=== PATIENT | male | born 1990 | race Caucasian/White ===

== ENCOUNTER 2018-11-02 13:41 | Emergency (ER) | payer SELFPAY ==
[2018-11-02 13:52] VITALS: BP 160/97; PULSE 102; RESP 20; TEMP 36.8; O2SAT 98
--- NOTE | 2018-11-02 14:18 | DI.RAD_ITS ---
SYMPTOMS/DIAGNOSIS: LACERATION S/P CUT WITH GLASS, ? FOREIGN BODY RIGHT LITTLE FINGER: Three views. No acute fracture or dislocation is seen. No radiopaque foreign bodies are seen in the soft tissues. IMPRESSION: No acute abnormality.
--- NOTE | 2018-11-02 14:20 | ED.GENADUL_ITS ---
Discharge Plan Disposition Patient Disposition: HOME Condition: Stable Discharge Details Chief Complaint: Laceration Clinical Impression: Finger laceration Primary Care Provider: Cleveland Castellanos ED Provider: Yesenia Nunez Home Meds and New Rx's Prescriptions: No Action No Known Home Meds RF: 0 Discharge Instructions Instructions: Finger Laceration (ED) Additional Instructions: Keep the area clean dry and intact. Alternate Tylenol and Motrin as needed and directed for pain. If you notice any redness, swelling or pain around the area, apply topical antibiotic ointment. If you have significant worsening of redness or fever, return immediately to the emergency department. You will receive a call from care management regarding a follow-up appoint with primary care doctor in 1 week. Return to the emergency department in 7 days for suture removal. Discharge Data Discharge Date/Time-TO BE ENTERED AT DEPARTURE: 11/02/18 16:07 Discharge Physician: Yesenia Nunez Medical Decision Making 28-year-old male who presents with right fifth finger laceration sustained on broken glass while cleaning dishes at home prior to arrival. Unknown tetanus status. He has a 3.5 cm laceration on the medial aspect of the right fifth finger. No obvious foreign body or bony injury. Neurovascularly intact. X-ray obtained and was negative for fracture or foreign body. 4 sutures were placed in finger. Consent was obtained from patient first prior to suture placement for medical student to perform procedure. Wound was irrigated well and closely approximated. Tetanus given. Antibiotic ointment and dressing placed. Patient does not have a primary care doctor. He was placed on care management list to arrange for primary care doctor. Patient was instructed to return to the emergency department in 7 days for suture removal. He was instructed to apply topical antibiotic ointment with any mild signs of infection and to return here immediately with any significant worsening signs of infection. Medical Records Medical records reviewed: Yes I reviewed the patient's medical records. Imaging Data Radiologic Study: Radiologist's impression: RIGHT LITTLE FINGER: Three views. No acute fracture or dislocation is seen. No radiopaque foreign bodies are seen in the soft tissues. IMPRESSION: No acute abnormality. HPI General Mode of arrival: ambulatory . Date/Time Provider Initiated Documentation: 11/02/18 13:55 . Limitations to Documentation: no limitations . Information obtained by: patient . HPI Narrative: Patient is a 28-year-old male presents with right fifth finger laceration after cut on a glass while cleaning dishes in the sink prior to arrival. He denies any known foreign body. He denies any bony injury or pain. He states he is unsure of his tetanus status and states he does not have a primary care doctor. Related Data Home Medications Medication Instructions Recorded Confirmed Unknown [No Known Home Meds] 02/04/13 11/02/18 Allergies Allergy/AdvReac Type Severity Reaction Status Date / Time No Known Allergies Allergy Unverified 11/02/18 13:55 General Stated Complaint: Laceration RONALD: 3 Review of Systems Review of Systems All systems reviewed & are unremarkable except as noted in HPI and below PFSH Medical History No significant past medical history (Acute) Surgical History No significant past surgical history (Acute) Social History Smoking and Tabacco status: Current every day alcohol intake: current alcohol intake frequency: a few times a month substance use type: marijuana Exam Const General: cooperative, healthy appearing and no acute distress HENMT Head: normal to inspection Mouth: oral mucosae normal Eyes General: appearance normal, both eyes and all related structures Neck Neck: normal visual inspection Resp Effort & Inspection: normal respiratory effort and able to speak in complete sentences Cardio Rate: regular rate Skin General skin exam: no rashes or lesions noted Neuro General: alert, awake and oriented x3 Motor: muscle tone normal throughout Extrem Right upper extremity: hand Details: normal capillary refill, no swelling, laceration (3.5 cm hook-shaped laceration on medial aspect of distal right fifth finger) and other; no unusual warmth, no ecchymosis, no crepitus and no foreign bodies Psych Appearance: grossly normal Affect: normal affect Course Vital Signs Temperature 98.2 F 11/02/18 13:52 Pulse 102 H 11/02/18 13:52 Respiratory Rate 20 11/02/18 13:52 Blood Pressure 160/97 H 11/02/18 13:52 Pulse Oximetry 98 11/02/18 13:52 Temperature 98.2 F 11/02/18 13:52 Temperature Source Temporal Artery Scan 11/02/18 13:52 Pulse 102 H 11/02/18 13:52 Respiratory Rate 20 11/02/18 13:52 Respiratory Effort Non-Labored 11/02/18 13:52 Blood Pressure 160/97 H 11/02/18 13:52 Blood Pressure Position Sitting 11/02/18 13:52 Pulse Oximetry 98 11/02/18 13:52 Oxygen Delivery Method Room Air 11/02/18 13:52 Oxygen Flow Rate 0 11/02/18 13:52 Pain Level 2 11/02/18 13:52 Procedures Laceration Laceration 1: Site: hand (5th finger) Side (If applicable): right Size (cm): 3.5 Description: other (hooked shaped) Depth: simple, single layer Local Anesthetic: Lidocaine 1% Amount of anesthesia used (mL): 3 Pre-repair: wound explored, irrigated extensively and deep structures intact Skin layer closed with: nylon Size (cm): 5-0 Number of sutures: 4 Technique: simple, interrupted
--- NOTE | 2018-11-04 08:48 | PDOC.ERCMPRO ---
Care Management Progress Note 11/04-Dr. Nunez requested assistance with a PCP (patient does not have one) f/u soon for medical issues that need to be addressed. 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 This was faxed on 11/03. In the afternoon of 11/03, [facility] faxed back that patient needs to call for New Patient packet. This CM called [facility] and spoke with Indu to see if they had reached out to patient. Indu stated I had to speak to Preeti. This CM left a message on Preeti's voice mail for a return call.
--- NOTE | 2018-11-04 08:51 | CMPROGNOTE_ITS ---
Care Management Progress Note 11/04-Dr. Nunez requested assistance with a PCP (patient does not have one) f/u soon for medical issues that need to be addressed. 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 This was faxed on 11/03. In the afternoon of 11/03, [facility] faxed back that patient needs to call for New Patient packet. This CM called [facility] and spoke with Indu to see if they had reached out to patient. Indu stated I had to speak to Preeti. This CM left a message on Preeti's voice mail for a return call.
== END 2018-11-02 16:07 | disposition home or self-care (01) ==
PROVIDERS: Emergency Provider Physician Assistant; PCP General Practice
DX: S61.226A Laceration with foreign body of right little finger without damage to nail, initial encounter (principal); W25.XXXA Contact with sharp glass, initial encounter
CPT/HCPCS: 12002; 90471; 99283; 73140; 99282

== ENCOUNTER → 2023-12-29 09:24 | Outpatient (CLI) | payer MEDICAID, SELFPAY ==
--- NOTE | 2023-12-29 15:51 | DI.RAD_ITS ---
Exam(s) XR KNEE LT 4V AP,LAT,VERNA,PAT EXAM: XR KNEE LT 4V AP,LAT,VERNA,PAT CLINICAL HISTORY: INJURY LEFT KNEE S89.92XA R/O FX OR DISLOCATION. TECHNIQUE: 2D digital imaging was performed of the left knee. Five images were obtained. Merchant, AP, lateral and PA tunnel views were obtained. COMPARISON: No exams were available for comparison FINDINGS: BONES: No acute fracture is present. No bony destructive lesion is seen. JOINTS: The patella appears mildly laterally located on the frontal views but normal alignment on the Merchant and lateral views. There may be a very tiny joint effusion. No loose body. SOFT TISSUE: Normal. IMPRESSION: No definite fracture or dislocation. If there is concern for internal derangement, an MRI should be considered for further evaluation. DATA REPOSITORY: RADIATION DOSE DELIVERED:
== END ==
PROVIDERS: PCP General Practice; Visit Provider Physician Assistant
DX: M25.562 Pain in left knee (principal)
CPT/HCPCS: 73564

== ENCOUNTER → 2024-02-18 00:03 | Outpatient (CLI) | payer MEDICAID, SELFPAY ==
--- NOTE | 2024-02-18 09:30 | DI.MRI_ITS ---
Exam(s) MR LOWER JOINT LT WO EXAM: MR LOWER JOINT LT WO CLINICAL HISTORY: ? MEDIAL MENISCAL TEAR M23.92 INTERNAL DERANGEMENT LT KNEE. TECHNIQUE: Multiplanar multisequence MRI was performed. COMPARISON: CR XR KNEE LT 4V AP,LAT,VERNA,PAT from 12/29/2023 FINDINGS: BONES: No fractures identified. There is marrow edema seen in the medial femoral condyle. JOINTS: There is chondromalacia overlying the patellar facet. The articular cartilage in the femoral tibial joint is well maintained. There is a small to moderate size joint effusion. TENDONS: Extensor mechanism: Unremarkable. Medial retinaculum: Unremarkable. Lateral retinaculum: Unremarkable. Popliteus: Unremarkable. MUSCLES: Unremarkable. MENISCI: There is a tear of the posterior horn of the medial meniscus. The lateral meniscus is unrem arkable. SOFT TISSUES: Unremarkable. LIGAMENTS: Anterior Cruciate: Unremarkable. Posterior Cruciate: Unremarkable. Medial Collateral:There is a small amount of fluid seen around the medial collateral ligament which m ay represent a sprain. Lateral Collateral: Unremarkable. OTHER: IMPRESSION: 1. Complex tear of the posterior horn of the medial meniscus. 2. No evidence of a ligament tear. 3. Contusion in the medial femoral condyle. 4. Patellar chondromalacia. DATA REPOSITORY:
== END ==
PROVIDERS: PCP General Practice; Visit Provider Student in an Organized Health Care Education/Training Program
DX: M23.92 Unspecified internal derangement of left knee (principal); S83.232A Complex tear of medial meniscus, current injury, left knee, initial encounter; S80.02XA Contusion of left knee, initial encounter; M22.42 Chondromalacia patellae, left knee
CPT/HCPCS: 73721

== ENCOUNTER 2024-06-02 06:02 | Day surgery (SDC) | payer MEDICAID, SELFPAY ==
[2024-06-02] VITALS (47 sets, daily range): BP systolic 138–171; BP diastolic 67–108; PULSE 70–90; RESP 9–22; TEMP 36–37; O2SAT 91–100; BMI 44.8
--- NOTE | 2024-06-02 06:54 | W.PM.OP ---
Date of service: 06/02/24 Time of Service: 07:30 Operative Note Operative Note DATE OF PROCEDURE: 06/02/24 PRE-OP DIAGNOSIS: Left knee 1. Medial meniscus tear 2. Synovitis 3. Chondromalacia patella POST-OP DIAGNOSIS: same PROCEDURE: Left knee 1. Partial medial meniscectomy, CPT #59716 2. Greater than 2 compartment synovectomy, CPT #68446: Anterior, intercondylar, and suprapatellar 3. Chondroplasty, CPT #14303: Patellar SURGEON: Mayco Preciado SALES DEPARTMENT SUPERVISOR: None None ANESTHESIA TYPE: Local By Surgeon and General LMA/ETT Refer to Anesthesia Record ESTIMATED BLOOD LOSS: 10 PATHOLOGY: none sent TOURNIQUET TIME: 0 Patient was transported to: PACU Patient's condition: stable Indications: Please see complete medical record for details. Findings: Exam under anesthesia: Good range of motion, no instability Arthroscopic findings: Significant suprapatellar, medial lateral gutter, anterior, and intercondylar synovitis. Adhesions between the ligamentum mucosum, intrameniscal ligament, and ACL. Moderately significant diffuse patellar undersurface chondromalacia and more mild trochlear chondromalacia with loose edges cartilage flaps. Small cartilaginous loose body lateral gutter. Intact lateral meniscus with mild lateral chondromalacia. Mild medial chondromalacia with moderately large sized complex medial meniscus tear radial at the posterior horn body junction with a somewhat oblique to parrot-beak component, but no readily repairable horizontal or vertical tears encountered. Procedure Description: In the operating room, general anesthesia was induced. The patient was positioned supine on the operating room table. All bony prominences were well-padded. Preoperative antibiotics were administered. The knee was prepped and draped in the usual sterile fashion. The correct patient, procedure, and side of the procedure were all verified prior to incision. Exam under anesthesia was performed. 10 cc of 0.25% bupivacaine containing epinephrine was infiltrated about the planned anteromedial and anterolateral knee arthroscopy portals. An additional 10 cc was infiltrated about the medial joint line. The portals were established and a complete diagnostic arthroscopy was performed with relevant findings detailed above. The mechanical shaver was used to remove pathologic synovium from the anterior, intercondylar, and suprapatellar spaces. The anterior and internal compartments had to be somewhat meticulously debrided to remove adhesions between very structures anteriorly anterior laterally intrameniscal ligament ACL and allow reopening and exposure for the case. The radiofrequency ablator was used to establish hemostasis and appropriate soft tissue contours. The romain used to remove small cartilaginous loose body from the lateral gutter. The shaver and radiofrequency wand were used to debride synovitis in resect adhesions in the patellofemoral and suprapatellar spaces as well. The torpedo shaver was then used to trim and smooth nicely removing rough and irregular edges of the undersurface patellar chondromalacia and to a lesser extent on the trochlea. The medial meniscus was then carefully examined. Using a combination of hand instruments including meniscal biters and a power shaver and working through the anteromedial and anterolateral portals the meniscus was debrided of all torn tissue to a stable margin slowly and progressively while examining meniscus remnant for potential repair after each part was debrided.. Care was taken to preserve as much meniscus tissue was possible although the radial extent of the tear at the junction of the body and posterior horn was rather peripheral and required contouring into the body and posterior horn. The meniscal remnant was probed and found to have a stable margin, stable root, and no other tears. The MRI showed a possible vertical component that was hidden from the joint and medial gutter view. An 18-gauge needle was used from the outside in to trephinate the peripheral meniscal capsular margin to aid in healing of this potential tear as well as any meniscal abnormality degeneration about the tear that was just debrided. The knee was copiously irrigated with arthroscopic fluid until there was a clear effluent before being drained of all fluid. The anteromedial and anterolateral portals were closed in 3-0 Monocryl in a buried interrupted fashion. An additional 10 cc of 0.25% bupivacaine with epinephrine was infiltrated about the medial joint line site of meniscus work. Mastisol, Steri-Strips, and 4 x 4 gauze were applied over the incisions. The knee was then wrapped gently with an LYRIC comressive bandage. The patient awoke from anesthesia without complication and was transferred to the recovery room in a stable condition.
[2024-06-02] MEDS: Lactated Ringers 1,000 ML 30 ML IV (06:55)
--- NOTE | 2024-06-02 07:06 | W.ANESPRE ---
General Info Date of Service Date Performed: 06/02/24 Height: 6 ft Weight: 150 kg Body Mass Index (BMI): 44.8 Surgical Procedure: Operation Date: 06/02/24 07:40 Proposed Procedure Side Surgeon p Knee Arthroscopy, Possible Medial Meniscus Repair & Microfracture as Bone Marrow Stimulation Left Mayco Preciado MD Meds Allergies and Home Medications Allergies Allergy/AdvReac Type Severity Reaction Status Date / Time No Known Allergies Allergy Verified 06/02/24 06:21 Home Medication ?Medication ?Instructions ?Recorded Unknown [No Known Home Meds] 02/04/13 Current Visit Medications: Current Medications Generic Name Dose Route Start Last Admin Trade Name Freq PRN Reason Stop Dose Admin Ringer's Solution 1,000 mls @ 30 mls/hr 06/02/24 06:00 06/02/24 06:55 IV 06/02/24 23:59 30 mls/hr INFUSION TRU Administration Cefazolin Sodium 3,000 mg/ 100 mls @ 200 mls/hr 06/02/24 06:00 Sodium Chloride IV 06/02/24 23:59 PREOP TRU Tranexamic Acid/Sodium Chloride 1,000 mg in 100 mls @ 600 mls/hr 06/02/24 06:00 IVPB 06/02/24 23:59 PREOP TRU IV Miscellaneous Supplies 1 each 06/02/24 06:00 Iv Access IV 06/02/24 23:59 DIRECTED TRU Sodium Chloride 0 ml 06/02/24 06:00 Normal Saline Flush 10 Ml Syr IV 06/02/24 23:59 PRN PRN Sodium Chloride 0 ml 06/02/24 06:00 Normal Saline 10 Ml Vial IJ 06/02/24 23:59 DIRECTED PRN Sterile Water 0 ml 06/02/24 06:00 Water,Injection,Sterile 10 Ml Vial IJ 06/02/24 23:59 DIRECTED PRN PFSH Active Problems Active Problems: Problem Status Onset Code No-show for appointment Acute Z91.199 Acute medial meniscus tear of left knee Acute ~11/2023 S83.242A Medical History Medical History No significant past medical history Medical History Comments:: edibles 4x week Surgical History Surgical History No significant past surgical history Tobacco Smoking/Tobacco Use Status: Current every day Tobacco Type: e-cigarettes Alcohol Alcohol Intake: current Alcohol intake frequency: holidays/special occasions only Substance Use Substance use: Daily Substance use type: marijuana Details: 4x week edible Vital Signs and Lab Results Vital Signs Most Recent Vital Signs in EMR: Most Recent Vital Signs Temp Pulse Resp BP Pulse Ox 36.5 C 90 17 138/67 97 06/02/24 06:22 06/02/24 06:22 06/02/24 06:22 06/02/24 06:22 06/02/24 06:22 Lab Results Blood Type / Crossmatch: No Data to Display Complete Blood Count: No Data to Display Complete Metabolic Panel: No Data to Display Liver Function Panel: No Data to Display Coagulation Panel: No Data to Display Cardiac Panel: No Data to Display Arterial Blood Gas: No Data to Display Venous Blood Gas: No Data to Display Pancreas Panel: No Data to Display Thyroid Panel: No Data to Display Infectious Disease: No Data to Display Blood Cultures: No Data to Display Toxicology Panel: No Data to Display Anesthesia Assessment and Plan Anesthesia History Personal History: No History of General Anesthesia Family History: No Family History of Anesthesia Complications Exercise Tolerance Exercise Tolerance: Metabolic Equivalents>4 Pertinent Negatives Pertinent Negatives: No Symptoms of GERD, No Major Cardiovascular Symptoms or Complaints, No Major Pulmonary Symptoms or Complaints and No History of CVA/TIA Cardiac & Pulmonary Exam Cardiac Exam: Normal S1/S2 Heart Sounds Pulmonary Exam: Clear Bilateral Breath Sounds Implantable Cardiac Device Does patient have a Pacemaker or an ICD?: No Airway Exam Known Difficult Airway: No Mallampati Class: 3 Mouth Opening: Normal (> 3cm) Thyromental Distance: Greater than 3 cm Neck Range of Motion: Full ROM Neck Circumference: Normal Teeth Condition: Normal Dentition ASA Classification ASA Score: ASA 3 Emergency Case?: No NPO Status NPO Status: NPO Clears >2 hours, Solids >8 hours Anesthesia Plan Resuscitation Status: Full Code Anesthesia Technique: General Anesthesia Airway Planned: LMA Monitors Used: Standard Monitors
--- NOTE | 2024-06-02 07:06 | W.PM.DSUDISC ---
Date of service: 06/02/24 Time of Service: 09:00 Discharge Plan Disposition Patient Disposition: Home Condition: Stable Discharge Details Attending Provider: Mayco Preciado Primary Care Provider: Cleveland Castellanos Home Meds and New Rx's Prescriptions: New naproxen 250 mg tablet 250 - 500 mg PO BID PRNQty: 40 0RF Rx Instructions: take with a meal aspirin 325 mg tablet,delayed release (DR/EC) 325 mg PO DAILY 14 Days Qty: 14 0RF oxycodone 5 mg tablet 5 - 10 mg PO Q4H MDD 30 mg PRN (Reason: moderate to severe pain) Qty: 18 0RF Discharge Instructions Additional Instructions: Surgery: Left knee arthroscopy with partial medial meniscectomy, patellar chondroplasty, and synovectomy Activity: Weightbearing as tolerated. Advance range of motion as comfort allows. No knee brace or crutches needed as soon as comfortable. Recommend avoiding sports, pivoting, and squatting for 6-8 weeks. A physical therapy prescription will be sent electronically to start in 2 to 3 weeks. Prescriptions: Aspirin 325 mg take 1 daily to prevent a blood clot for 14 days, starting tomorrow Naproxen 250 mg take 1-2 every 12 hours with a meal as needed for moderate pain Oxycodone 5 mg take 1-2 every 4-6 hours as needed for severe pain You may use [id number] Tylenol (acetaminophen) as needed for mild pain. These pain medications may be taken all at once or in different combinations as needed. Also, recommend Colace (docusate) as a stool softener as surgery and pain medicine cause constipation. You may try [id number] diphenhydramine (Benadryl) 25-50 mg nightly as a sleep aid Dressings: Leave dressing in place for 3 days. May then remove and leave open to air or cover incisions with Band-Aids. Leave the sticky Steri-Strips in place until they fall off or remove them after you shower. May shower after 5 days. Follow-up: 10-[address] Preciado You may take off the leg compression stockings this evening at home. You may also leave them on a few days longer if you have a history of leg swelling or edema. Let us know right away if you develop any redness, drainage, fevers, chest pain, or trouble breathing. Do not drink alcohol or drive for at least 24 hours after anesthesia. Please call the office during business hours with any questions or concerns. Discharge Orders Discharge Orders: Discharge Order (Routine); Ordered 06/02/24 Ordered By: Adry Baird DS: Diagnosis Discharge Diagnosis (1) Acute medial meniscus tear of left knee: Status: Acute (2) Chondromalacia of patella, left: Status: Acute
[2024-06-02] MEDS: ceFAZolin 3,000 MG in Normal Saline 100 ML 200 MG IV (07:33)
[2024-06-02] MEDS: TRANEXAMIC ACID/SOD. CHL. 1,000 MG/100 ML BAG 600 MG IVPB (07:44)
[2024-06-02] MEDS: Bupivacaine 0.25% Pres-Free W/EPI 30 ML VIAL (08:14)
[2024-06-02] MEDS: EPINEPHrine 10 MG/10 ML ML (08:43)
[2024-06-02] MEDS: HYDROmorphone 2 MG/ML SYR IVP ×2 (09:55→10:05)
[2024-06-02] MEDS: Normal Saline 10 ML VIAL IJ (09:55)
[2024-06-02] MEDS: fentaNYL 100 MCG/2 ML VIAL IVP ×2 (10:15→10:20)
--- NOTE | 2024-06-02 10:43 | W.ANESPOSTOP ---
Postoperative Evaluation Date, Time and Location Date Performed: 06/02/24 Time Performed: 10:43 Patient Location: Day Surgery Unit Vital Signs Most Recent Imported Vital Signs: Most Recent Vital Signs Temp Pulse Resp BP Pulse Ox 36.0 C L 80 11 L 148/93 H 100 06/02/24 10:33 06/02/24 10:33 06/02/24 10:33 06/02/24 10:33 06/02/24 10:33 Pain Score Most Recent Pain Score: Most Recent Pain Score Pain Level 3 06/02/24 10:33 Assessment Mental Status: Awake (Alert & Oriented to Patient Baseline) Airway and Respiratory Function: Patent airway with normal (patient baseline) respiratory exam Cardiovascular Function: Hemodynamically Stable Hydration Status: Adequately Hydrated Nausea & Vomiting: No Nausea or Vomiting Pain: Pain is Moderate or Severe Postoperative Pain Management: Pain being addressed with medication Peripheral Nerve Block: Patient did not receive a nerve block
== END 2024-06-02 11:30 | disposition home or self-care (01) ==
PROVIDERS: PCP General Practice; Visit Provider Student in an Organized Health Care Education/Training Program
PROC: (CPT 29870; principal; 2024-06-02 07:30)
DX: S83.242A Other tear of medial meniscus, current injury, left knee, initial encounter (principal); M22.42 Chondromalacia patellae, left knee; X58.XXXA Exposure to other specified factors, initial encounter; M65.162 Other infective (teno)synovitis, left knee
CPT/HCPCS: 29876; 29881; J0131; J0690; J1100; J1170; J1805; J1885; J2250; J2270; J2405; J2704; J3010

== ENCOUNTER 2024-10-05 12:43 | Outpatient (CLI) | payer MEDICAID, SELFPAY ==
--- OUTSIDE RECORDS SUMMARY | 2024-10-05 12:44 | XMS_ITS | Encounter Summary ---
Author Organization [facility] Address [address] [place] [address] Care Team Providers Care District Administrative Assistant Name Role Phone None, Provider Primary Care Provider Unavailabl e Encounter Details Date Type Department Care Team (Late st Contact Info) Description 09/14/2011 Results Only [facility] ([facility]) [address], [place] [id number] Landen Moscoso MD [address] [facility] [address] [place] [address] Social History Tobacco Use Types Packs/Day Years Used Date Smoking Tobacco: Every Day Cigarettes 0.3 4 Smokeless Tobacco: Current Alcohol Use Standard Drinks/Week Comments No 0 (1 standard drink = 0.6 oz pur e alcohol) Sex and Gender Information Value Date Recorded Sex Assigned at Not on file Legal Sex Male 18:53 EST Gender Identity Not on file Sexual Orientation Not on file documented as of this encounter Mental Status * Because of a physical, mental, or emotional condition, do you have serious difficulty concentrating, remembering, or making decisions? (5 years old or older) Answer Entry Date Author Yes 03/20/2011 23:33 Klever Harding documented in this encounter Plan of Treatment Not on file documented as of this encounter Procedures Procedure Name Priority Date/Time Associated Diagnosis Comments ABO/RH Routine 09/14/2011 17:58 EST VARICELLA IGG ANTIBODY Routine 09/14/2011 17:28 EST documented in this encounter Results * ABO/RH (09/14/2011 17:58 EST) ABO A [facility] Rh Factor Positive [facility] 09/14/2011 17:5 8 EST 09/14/2011 17:58 EST us Landen Moscoso MD BLOOD BANK TESTS Final Resul t Performing Organization Address [facility] Co de Phone Number [facility] [address] [place] [address] * VARICELLA IGG ANTIBODY (09/14/2011 17:28 EST) Varicella IgG Ab Positive [facility] 09/14/2011 17:2 8 EST 09/14/2011 17:28 EST us Landen Moscoso MD IMMUNOLOGY AND SEROLOGY ORDCasimiro JOHNSON Final Result Performing Organization Address [facility] Co de Phone Number [facility] [address] [place] [address] documented in this encounter Visit Diagnoses Not on filedocumented in this encounter Care Teams District Administrative Assistant Relationship Specialty Start Date End Date None, Provider PCP - General 03/20/11 documented as of this encounter
--- OUTSIDE RECORDS SUMMARY | 2024-10-05 12:44 | XMS_ITS | Clinical Summary ---
Author Organization [facility] Address [address] [place] [address] Care Team Providers Care Works Manager Name Role Phone None, Provider Primary Care Provider Unavailabl e Allergies No known active allergies Medications No known medications Active Problems Problem Noted Date Diagnosed Date Depression 03/20/2011 Suicidal ideation 03/20/2011 Family History Medical History Relation Comments Diabetes Maternal Grandmother Diabetes Maternal Uncle Diabetes Mother Relation Status Comments Maternal Grandmother Maternal Uncle Mother Social History Tobacco Use Types Packs/Day Years Used Date Smoking Tobacco: Every Day Cigarettes 0.3 4 Smokeless Tobacco: Current Alcohol Use Standard Drinks/Week Comments No 0 (1 standard drink = 0.6 oz pur e alcohol) Sex and Gender Information Value Date Recorded Sex Assigned at Not on file Legal Sex Male 18:53 EST Gender Identity Not on file Sexual Orientation Not on file Obstetrics History Last Filed Vital Signs Vital Sign Reading Time Taken Comments Blood Pressure 129/71 03/25/2011 0752 EDT Pulse 75 03/25/2011 0752 EDT Temperature 36.5 ??C (97.7 ??F) 03/25/2011 0752 EDT Respiratory Rate 16 03/25/2011 0752 EDT Oxygen Saturation 98% 03/25/2011 0752 EDT Inhaled Oxygen Concentration - - Weight 74.5 kg (164 lb 3.2 oz) 03/22/2011 1100 E DT Height 174 cm (5' 8.5) 03/22/2011 1100 EDT Body Mass Index 24.6 03/22/2011 1100 EDT Plan of Treatment Health Maintenance Due Date Last Done Comments Hepatitis C Screen 1991 Hepatitis B Vaccine (1 of 3 - 19+ 3-dose series) 01/10 COVID-19 Vaccine (2023- season) 2024 Advance Directives For more information, please contact: [phone] * Full Code (Latest Code Status on File) Date Activated Date Inactivated Comments 03/20/2011 22:32 03/25/2011 16:52 Care Teams Works Manager Relationship Specialty Start Date End Date None, Provider PCP - General 03/20/11
--- OUTSIDE RECORDS SUMMARY | 2024-10-05 12:44 | XMS_ITS | Encounter Summary ---
Author Organization [facility] Address [address] [place] [address] Care Team Providers Care Barrel Tester And Drainer Name Role Phone None, Provider Primary Care Provider Unavailabl e Reason for Visit * Reason Comments Suicidal Patient currently on active duty in [employer]. Expressed to friend today he has a plan to kill himself with a knife. No thoughts of HI. No drugs or ETOH today. Patient calm and cooperative in triage. Arrives to ED with friend whom plans on staying with him while in ED. Encounter Details Date Type Department Care Team (Late st Contact Info) Description 03/20/2011 19:40 EDT - 03/25/2011 14:48 EDT Hospital Encounter [facility] Inpatient Psychiatry Unit [address], [place] [id number] Rachel Monsivais PA-C [address] [phone] Carly Adame PA-C [address] [phone] Sandra Boothe MD [address] [place] [address] [address] [place] [phone] Nicholas Moreno MD Suicidal ideation Discharge Disposition: Auto Discharge Social History Tobacco Use Types Packs/Day Years Used Date Smoking Tobacco: Every Day Cigarettes 0.3 4 Smokeless Tobacco: Current Tobacco Cessation:Ready to Q uit: No Alcohol Use Standard Drinks/Week Comments No 0 (1 standard drink = 0.6 oz pur e alcohol) Sex and Gender Information Value Date Recorded Sex Assigned at Not on file Legal Sex Male 18:53 EST Gender Identity Not on file Sexual Orientation Not on file documented as of this encounter Last Filed Vital Signs Vital Sign Reading Time Taken Comments Blood Pressure 129/71 03/25/2011 0752 EDT Pulse 75 03/25/2011 075 EDT Temperature 36.5 ??C (97.7 ??F) 03/25/2011 0752 EDT Respiratory Rate 16 03/25/2011 0752 EDT Oxygen Saturation 98% 03/25/2011 075 EDT Inhaled Oxygen Concentration - - Weight 74.5 kg (164 lb 3.2 oz) 03/22/2011 1100 E DT Height 174 cm (5' 8.5) 03/22/2011 1100 EDT Body Mass Index 24.6 03/22/2011 1100 EDT documented in this encounter Mental Status * Because of a physical, mental, or emotional condition, do you have serious difficulty concentrating, remembering, or making decisions? (5 years old or older) Answer Entry Date Author Yes 03/20/2011 23:33 EDT Klever Wheeler documented in this encounter Discharge Summaries * Nicholas Moreno MD - 03/26/2011 1420 EDT INPATIENT PSYCHIATRIC DISCHARGE SUMMARY Patient Name: Brice Spivey : 1990 Date of Admission: 03/20/2011 Date of Discharge: 03/25/2011 Attending at time of discharge: Nicholas Moreno MD DISCHARGE DIAGNOSIS: [place] I: Major depressive episode, single, moderate [place] II: defer [place] III: Non contributing medical problems [place] IV: Legal issues, employment, financial [place] V: GAF on admission: 21 , on discharge: 66 Reason for Admission: Positive depression screening History of Present Illness: (attributable to admitting resident Dr. Diego.) The patient is a 21 y.o. single man in [employer] who presented to the ED in the company of his sergeantafter answering positively to screening questions about depression and suicidality during an annualphysical exam. 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 In the time since he describes feeling increasingly depressed and like he has failed himself and his family. He has been unable to pay bills, fines, or rent and believes he will soon lose his apartment as a result. Pt has continued to function in the [employer] but reports having less pep and loss of interest and pleasure in his work, and his sergeant reports that he has seemed quiet and withdrawn. Pt reports that he has had increasingly frequent thoughts about killing himself, including sitting for hours with a knife as he contemplates cutting his wrists. He has access to firearms in the [employer] and at home. Pt says there's nothing I can do, life's dragging me down and that there's reallyno point to keeping going. He reports drinking most weekends prior to his DWI with no endorsed alcohol consumption since, and denies other substance use apart from smoking 3-4 cigarettes daily. The patient has never been treated by a psychiatrist or taken psychotropic medication but reports that he had counseling from ages 7 to 13 following adoption by his biological aunt and uncle. He declines to talk about the time before the adoption, saying I've dealt with it. He endorses depressivesymptoms noted below, without endorsed auditory or visual hallucinations, nightmares, flashbacks, intrusive memories, or past periods of abnormally elevated mood, energy, or activity. He is seeking treatment and agrees readily to voluntary psychiatric admission. Meds on Admission: .No current facility-administered medications on file prior to encounter. No current outpatient prescriptions on file prior to encounter. Hospital Course: The patient was admitted to [facility], on a voluntary basis. Admission physical exam showed healthy young male, tattoo on L forearm. Admission labs showed presumptivepositive cannabis on urine screen. History was obtained from patient, sergeant. Young man clearly stressed as a result of recent events. He was tearful but appreciative on initial interview. He was pleased when members of his unit visited. Participated in discussion of risk and benefits of antidepressant treatment and agreed to trial of Sertraline 50 mg daily. He also actively became involved in milieu and group and benefited from this. He was thoughtful, helpful and [facility] He tolerated the medication without significant side effects. A meeting was held with MAYA Cope, [facility], [place] Director of Psychological Health, [facility], who participated in discharge planning. We discussed his returning to his [employer] unit at [employer] vs. returning home to his apt. Though there were pros and cons to each choice, Lawrence preferred to return to finish his training with his supportive unit. She informed that he would be under a 90 day review. He would not e handling weapons during this period. He denied SI through the majority of his admission. Given assistance enrolling in [facility] and getting referral to PCP in [facility]. Condition on Discharge: Improved Mental Status Exam on Discharge: Casually dressed, wearing an [employer] Tshirt, bright face, but somewhat tense expression. Showed examiner a couple card tricks. Polite formally. Good eye contact. Speech fluent. Mood improved, affect mildly anxiously thought logical. Without delusions or hallucinations.Denies SI. Insight and judgment fair to good. Discharge Medications: Brice Spivey Home Medication Instructions LILIANA:[id number] Printed on:03/26/11 1423 Medication Information sertraline (ZOLOFT) 50 mg tablet Take 1 Tab by mouth daily for 14 days. Disposition: Return to [employer] unit at [employer] at [facility] Discharge Plans/Follow-up Appointments: Please follow-up with Elizabeth Mathew MA, [facility], [place] Director of Psychological Health, [facility] [place] [facility], at [phone] or [phone]. As per our meeting 03/24/11, EileenTyson is arranging mental health follow up in your community and will assist you with finding a primary care physician. Mental Health Crisis Services: [facility]: [phone] Total time spent on day of discharge: 35 min. Nicholas Moreno MD, MD Attending Psychiatrist documented in this encounter Discharge Instructions * Discharge Instructions* Jeanine Tineo, [facility] - 03/25/2011 13:52 EDT Additional Medication Instructions: Do not use alcohol Do no use illicit drugs Do not take any medications that were not prescribed Consult with a physician before starting any new herbal supplements or [id number] medications, as some of these may interact with your prescribed medication. Discharge Plans/Follow-up Appointments: Please follow-up with Elizabeth Mathew MA, [facility], [place] Director of Psychological Health, [facility] [place] [facility], at [phone] or [phone]. As per our meeting 03/24/11, Ms. Mathew is arranging mental health follow up in your community and will assist you with finding a primary care physician. Mental Health Crisis Services: [facility]: [phone] documented in this encounter Medications at Time of Discharge sertraline (ZOLOFT) 50 mg tablet Take 1 Tab by mouth daily for 14 days. 14 Tab 0 03/25/2011 04/08/2011 documented as of this encounter Ordered Prescriptions Prescription Sig Dispense Quantity Refills Last Filled Start Date End Date sertraline (ZOLOFT) 50 mg tablet Take 1 Tab by mouth daily for 14 days. 14 Tab 0 03/25/2011 04/08/2011 documented in this encounter Discharge Disposition Disposition Code Departure Means Destination Auto Discharge documented in this encounter Progress Notes * Jeanine Tineo CSW - 03/25/2011 1610 EDT Social Work Progress Note Intervention/Service: Discharge Note Discharged with plan to return to training with the [facility] [employer] at [employer]. Meeting with Denise Childs, director of psychological services, took place on 03/24/11 where discharge plans were reviewed with WENDY and Dr. Moreno. 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 Please see discharge instructions for more detailed information re: follow-up plans. Dept assisted with one week's supply of prescribed medication. * Zofia Gaona - 03/25/2011 1219 EDT Focus Group S/O: Pt spoke about his discharge later today and stated that groups are helpful especially the garden group where you get outside. Pt also completed the patient satisfaction survey. When a new patient came into the group late he socialized and they spoke about their experiences for a few minutes. Pt in a good mood. A: engaged, improved mood, smiling, laughing and socializing, full affect. P: to continue to participate in groups. * Wilfrid Johnson - 03/24/2011 1730 EDT K[employer]ing S/O The patient initially declined the [employer] invite, but reconsidered when asked a second time. He chose a few songs from the selection, but didn't sing, instead choosing to surf the web on his phone. He talked with a peer and the AT about music in his past, but otherwise, kept to his cell phone. A: Pt was attentive with full affect. Did not fully participate. P: Continue participation in groups . * Nicholas Moreno MD - 03/24/2011 1704 EDT 03/24/2011 ATTENDING NOTE PROBLEM (ID and CC): Depressed and SI on screening HOSPITAL DAY: LOS: 4 days HISTORY: Doing very well with supports. Seen today with Elizabeth Mathew of [facility], Stephie Croft Cheerful, social, brighter. Slept 8 h. No SEs. Elizabeth outlined 90 day review for the [employer]. He would like to return to his unit and we discussed the alternative of going home, unemployed with nothing meaningful to do. He is quite happy with his progress and adds, I feel I can conquer the world. EXAM: Casually dressed, pleasant, polite, somewhat naive, good eye contact, fidgety, speech fluent,appropriate. Mood good, affect bright. Thought logical. Without delusions or hallucinations. DeniesSI. Insight and judgment good. BP 146/78 Pulse 64 Temp(Src) 35.9 ??C (96.6 ??F) (Tympanic) Resp 14 Ht 174 cm (68.5) Wt 74.481 kg (164 lb 3.2 oz) BMI 24.60 kg/m2 SpO2 94% ASSESSMENT: MDE, moderate. Doing well with support. He has had a number of stressors recently and feels he has not had anyone to talk to about these. Part of his improved affect involves his feeling unburdened. He is tolerating the Sertraline and feels the med is helping already. I do not believe his fairly prompt improvement is due to antidepressant-induced hypomania. He continues to be rationale and appreciative and to present a logical argument for returning to his unit. He is sleeping well.Discussed discharge tomorrow and [facility] psychological customs consultant was very helpful in planning. PLAN: 1. Continue Zoloft 50 mg daily 2. Help him enroll in [facility]. 3. Elizabeth can help find counselor 4. Referral to PCP near [facility] 5. D/C to unit at [employer] - Elizabeth will f/u with him there. I have personally seen and examined the patient today. Treatment plan reviewed with the team. I spent a total of 40 minutes with this patient in direct floor time and 25 minutes of that time was spent in counseling and coordination of care regarding status of symptoms, education/ reassurance about recovery, discharge planning. NICHOLAS MORENO MD Pager [phone] Attending, Inpatient Psychiatry, [facility] . * Jeanine Tineo, [facility] - 03/24/2011 7164 EDT Psychosocial Assessment Presenting Problems: 21 year old, single, man who is currently in the [employer] and has been involved in training exercises at [employer]. He lost his license after a DUI two months ago, and three weeks ago was laid off from his job. He has been more depressed since then, and has felt as if he failed himself, and his family. He has experienced significant financial difficulties and worries about losing his housing. He has become more withdrawn, and has not been able to accept offers of emotional support. Began to have thoughts of killing himself, spent hours sitting with a knife thinking about cutting his wrists. He reports prior to admission thinking there was nothing leftto keep him going on with his life. Current Living Situation/Housing: Apartment in [place], [place] Family/Support System and Contact Telephone Numbers: Rhiannon Sorto - friend - no phone number Family Constellation/Pertinent Family History: Was adopted by biological aunt and uncle at age 7. Lawrence knows his biological mother but does not know his father. Describes his adoptive family as supportive. Was raised with seven siblings - some biological cousins and others also adopted. Does not discuss childhood before age 7. Other Social Supports: Guard members, cousin, and other family and friends. Education/Employment Financial: [employer]. Recently lost job. Has significant financial concerns. Substance Abuse and Treatment History: Alcohol abuse but none since DUI two months ago. Mental Health Treatment History: Counseling from age [age] to [age] following adoption at age 7 by aunt and uncle. No therapy since and no psychiatric hospitalizations. Mental Health and Other Providers: Elizabeth Mathew MA, [facility] ([facility]) or [phone] Legal Issues: DUI two months ago - license revoked Spiritual/Mandaeism/Cultural Considerations: Is a spiritual person, no formal affiliation. Other Issues/Supports/Barriers to Adaptive Functioning: Further assessment needed Insurance/Pharmacy Coverage: No insurance Assessment: 21 year old single man who has lost job, had license revoked due to DUI, and who now faces significant financial difficulties. He reports he became depressed and hopeless and stopped talking to people becoming more quiet and withdrawn. He contemplated suicide in context of letting his family and himself down with DUI and job loss. He is currently connected with the [place] [employer] and was in process of training exercises at [employer] [facility]. He wants help and seems to be engaging on the unit. Continued assessment needed. Plan: Contact Elizabeth Mathew Continued assessment Offer meeting with team and Ms. Mathew (completed on 03/24/11) * Zofia Gaona - 03/24/2011 1439 EDT S/O: Pt participated in playing cards and socializing. A: Increase in activity, increase in socialization, increase in relaxation. P: To continue to participate in groups. * Zofia Gaona - 03/23/2011 1545 EDT Pet Therapy: S/O: Pt attended the group and was attentive to the dog and social with the Pet therapist and others in the group. Pt gave the dog a good rub down, got water for the dog, and fed the dog a treat. Pt smiling and social as he interacted with the dog. A: Engaged, increase in activity, expressed feelings, inc participation, brighter affect. P: to continue to participate in groups. * Chang Caballero (At) - 03/23/2011 1025 EDT Exercise Group: S/O: Pt participated in learning and employing kick-boxing movements. Pt shared some information about the fighting techniques he had learned in the [employer] and stated that he thought the should start using kick-boxing. When pt learned that there would be a ballet segment of the class, pt quickly replied that he would not be taking part in it, saying that he is masculine and does not do that type of thing. Pt politely left the group after 30 minutes. A: Brightened affect, engaged, strongly identifies with his masculinity P: To continue to participate in groups. * Rikki Alonso MD - 03/23/2011 0825 EDT 03/23/2011 ATTENDING THRESHER BROOMCORN NOTE REASON FOR HOSPITALIZATION: SI HOSPITAL DAY: LOS: 3 days INTERIM HISTORY: Events of past 24h reviewed with nursing staff. Had break odfff unit with sergeants. Social Slept all night. Cooperaitve with all care. Social;. Out on milieu. Slept all night. Got call about possible new job--very pleased. EXAM: A + O X 3. Cooperative. Good eye contact. Speech RRR w/normal content/prosody. Affect full-range and reactive. No evidence of a psychotic process/dementia/delirium/delusions. Denies SI/HI/psychotic symptoms/delusions. Insight/judgment WNL. No motor slowing/agitation. Thougths are goal-directed, normal rate, normal content. BP 134/77 Pulse 96 Temp(Src) 36.4 ??C (97.5 ??F) (Tympanic) Resp 14 Ht 174 cm (68.5) Wt 74.481 kg (164 lb 3.2 oz) BMI 24.60 kg/m2 SpO2 97% ASSESSMENT: Improved. PLAN: As per treatment team. Continue current care. RIKKI ALONSO MD Attending Psychiatrist concrete mixer operator Pager [phone] * Chang Caballero (At) - 03/22/2011 1431 EDT Garden Group: S/O: Pt played cards with peers, smiling and laughing. Pt did pushups for a few minutes by himself as well. A: Bright affect, social, energetic P: To continue to participate in groups. * Chang Caballero (At) - 03/22/2011 1107 EDT Pet Therapy: S/O: Pt petted Naveen and chatted with staff and peers. Pt smiled often. After 15 minutes, pt becamemore attentive to a movie that a peer was watching but thanked the volunteer for bringing Naveen at the end of group. A: Brightened affect, social, engaged P: To continue to participate in groups. * Rikki Alonso MD - 03/22/2011 0844 EDT 03/22/2011 ATTENDING THRESHER BROOMCORN NOTE REASON FOR HOSPITALIZATION: SI HOSPITAL DAY: LOS: 2 days INTERIM HISTORY: Events of past 24h reviewed with nursing staff. HAd break odfff unit with sergeants. Social Slept all night. cooperaitve with all care EXAM: A + O X 3. Cooperative. Good eye contact. Speech RRR w/normal content/prosody. Affect full-range and reqctive. No evidence of a psychotic process/dementia/delirium/delusions. Denies SI/HI/psychotic symptoms/delusions. Insight/judgment WNL. No motor slowing/agitation. Thougths goal-directed, normal rate, normal content. BP 116/74 Pulse 96 Temp(Src) 36.7 ??C (98.1 ??F) (Tympanic) Resp 14 Wt 73.483 kg (162 lb) SpO2 98% ASSESSMENT: Settling in okay. PLAN: As per treatment team. Continue current care. RIKKI ALONSO MD Attending Psychiatrist concrete mixer operator Pager [phone] * Conhcis Fenton - 03/21/2011 1928 EDT Social Work Progress Note Intervention/Service: Coordination of care P/C from Denise Gonzalez at [employer] ([phone]) to inquire re pt care. She stated she wouldcome in to see pt on Thursday. She is available to assist with referral to aftercare services if needed. Informed pt of this and he said he felt relieved with the support he has been getting. * Conchis Fenton - 03/21/2011 9467 EDT Psychosocial Assessment Presenting Problems: 21 y/o single man admitted for depression with SI. He has sat for hours with aknife contemplating cutting his wrists. Precipitants include losing license for DUI, being laid offfrom his job, and financial problems. Current Living Situation/Housing: Shares an apartment with a cousin in [facility] [place] [facility]. Family/Support System and Contact Telephone Numbers: None given. Family Constellation/Pertinent Family History: Adopted at age 7 by bio aunt and uncle and raised with 7 sibs (some bio cousins and others adopted). Adoptive family is described as supportive. Refusesto give specific info re childhood. Was in counseling from age [age]. Other Social Supports: Friend, Rhiannon Luis. Education/Employment Financial: HS grad. Recently laid off from a job [employer]ling [employer], which pt reports he was good at and enjoyed the work. Also serves with the [employer]. Substance Abuse and Treatment History: Smokes 3-4 cigarettes daily. Stopped drinking alcohol about 2 mos ago after receiving DUI. Mental Health Treatment History: Counseling from ages [age]. Mental Health and Other Providers: None. Legal Issues: DUI about 2 mos ago. Spiritual/Mandaeism/Cultural Considerations: Spiritual. Not a member of any organized amish. Other Issues/Supports/Barriers to Adaptive Functioning: Financial problems and debt. Insurance/Pharmacy Coverage: None. Assessment: 21 y/o single man admitted for depression. He has become overwhelmed with recent stressors, including financial problems r/t lay off from work. The [employer] is very supportive of him and want to ensure that aftercare services are in place. Plan: Coordinate services with [employer]. Refer to OP services. Electronically signed by Conchis Fenton 03/21/2011 15:53 EDT * Federico (At)Chang - 03/21/2011 1214 EDT Department of Psychiatry-Inpatient Psychiatry Activities Therapy Assessment Diagnosis: Multiaxial Diagnostic Impression (including Differential Diagnosis) [place] I: MDD (single episode, severe without psychotic features), r/o bipolar [place] II: Deferred [place] III: None known [place] IV: Legal problems (DWI), unemployment, financial problems [place] V: 11-20 some danger of hurting self or others possible OR occasionally fails to maintain minimal personal hygiene OR gross impairment in communication TARGET SYMPTOMS: I. Mood Changes: Depressed II. Sleep changes: Patient denies any changes III. Appetite changes: Patient denies changes IV. Depression symptoms: Decreased pleasure, Decreased interest, Fatigue, Hopelessness, Helplessness, Worthlessness/guilt, Social isolation and Psychomotor activity (slowed) V..Anxiety symptoms: Patient denies .Manic/impulsive/attentional symptoms: Patient denies VII. Psychotic symptoms: Patient denies VIII. Suicidality / Homicidality: Active suicidal ideation Current Activities of Daily/Weekly Living Job/Vocational Activities: Recently unemployed, looking for job Special Interests/Leisure/Recreation: Fixing cars, video games with friends Volunteer Activity: [place] [employer] Strengths & Skills I get along pretty well with everybody I'm a likeable person good personality Good with computers Patient's Goals for Admission To get back to where I was. Pt described his former self as optimistic, [id number], and good to hang out with. Special Needs or Challenges Depression, suicidal ideation, suspended DL, possibly tipple oiler trauma (does not want to discuss), DWI conviction Assessment: Pt is a 21 yo man in the [employer] with sx of depression, suicidal ideation, and access to weapons. 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 Pt was adopted by his aunt and uncle at age 7, before which there is some indication of a traumatic history, but pt declines to discuss this. During the present interview, pt was welcoming, cooperative, and friendly, appearing shy and/or nervous at times. Pt spoke positively of his father and how his father had taught him to repair automobiles since pt was no higher than a grasshopper's knee. Pt reported that having been able to speak about his feelings recently hasbeen a weight off [his] shoulders, and pt states he now sees a light at the end of the tunnel. 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 Pt shared that he believes in God andthat he feels God has helped him to find this job, saying, God helps those who help themselves. Pt reports that he intends to attend groups, including the Recovery Group to be held later this evening. Patient will benefit from participation in the following groups: Recovery Group, Group Therapy, C ognitive Therapy, Relaxation, Seeking Safety, and Arts and Crafts. Plan: Please refer to multidisciplinary treatment plan CHANG GarzaAT) 03/21/2011 12:15 * Data Control Assistant, Scan - 03/20/2011 0000 EDT * Data Control Assistant, Scan - 03/20/2011 0000 EDT * Data Control Assistant, Scan - 03/20/2011 0000 EDT documented in this encounter H&P Notes * Nicholas Moreno MD - 03/20/2011 1937 EDT Inpatient Admission Psychiatric Evaluation Admit Date: 03/20/2011 Date Of service: 03/20/2011 [facility] Outpatient providers: None PCP: None Information Obtained from: Patient and his sergeant (in the [employer]) Legal Status: Admission is voluntary Chief Complaint: I answered the questions about depression and stuff as yes. HPI: The patient is a 21 y.o. single man in the [employer] who presented to the ED inthe company of his sergeant after answering positively to screening questions about depression and suicidality during an annual physical exam. 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 In the time since he describes feeling increasingly depressed and like he has failed himself and his family. He has been unable to pay bills, fines, or rent and believes he will soon lose his apartment as a result. Pt has continued to function in the [employer] but reports having less pep and loss of interest and pleasure in his work, and his sergeant reports that he has seemed quiet and withdrawn. Pt reports that he has had increasingly frequent thoughts about killing himself, including sitting for hours with a knife as he contemplates cutting his wrists. He has access to firearms in the [employer] and at home. Pt says there's nothing I can do, life's dragging me down and that there's reallyno point to keeping going. He reports drinking most weekends prior to his DWI with no endorsed alcohol consumption since, and denies other substance use apart from smoking 3-4 cigarettes daily. The patient has never been treated by a psychiatrist or taken psychotropic medication but reports that he had counseling from ages 7 to 13 following adoption by his biological aunt and uncle. He declines to talk about the time before the adoption, saying I've dealt with it. He endorses depressivesymptoms noted below, without endorsed auditory or visual hallucinations, nightmares, flashbacks, intrusive memories, or past periods of abnormally elevated mood, energy, or activity. He is seeking treatment and agrees readily to voluntary psychiatric admission. TARGET SYMPTOMS: I. Mood Changes: Depressed II. Sleep changes: Patient denies any changes III. Appetite changes: Patient denies changes IV. Depression symptoms: Decreased pleasure, Decreased interest, Fatigue, Hopelessness, Helplessness, Worthlessness/guilt, Social isolation and Psychomotor activity (slowed) V..Anxiety symptoms: Patient denies .Manic/impulsive/attentional symptoms: Patient denies VII. Psychotic symptoms: Patient denies VIII. Suicidality / Homicidality: Active suicidal ideation Reason for Failure of Outpatient Treatment: Increased severity of pyschiatic symptoms and Patient'sinability to participate in an outpatient psychiatric treatment program due to the severity of psychiatric symptoms Current Support System: Sergeant Sánchez (in the [employer]): [phone] Psychiatric History: Previous Diagnosis: None Prior Hospitalization: None Longitudinal Course of Illness: No endorsed past depression. Had counseling from ages [age] after adoption. Prior suicide /aggressive/self mutilating behavior: None. Previous medication trials / Prior therapy (with whom): None. PMH PSH History reviewed. No pertinent past medical history. History reviewed. No pertinent past surgical history. Family History (medical/surgical) Social History Family History Problem Relation Age of Onset ??? Diabetes Mother ??? Diabetes Maternal Uncle ??? Diabetes Maternal Grandmother History Substance Use Topics ??? Smoking status: Current Everyday Smoker -- 0.2 packs/day for 4 years ??? Smokeless tobacco: Current User ??? Alcohol Use: No Family History (psychiatric) Substance Abuse History 2 cousins (pt's adoptive sisters) with mood swing disorder (pt describes as rapid shifts over hours to days) for which they take medication. No suicides. (Pt is adopted, knows his biological mother but not father.) Smokes 3-4 cigarettes daily. No endorsed alcohol consumption since DWI about 2 months ago. No other endorsed substance use. Medications None Allergies No Known Allergies Special Precautions: n/a Psychosocial History: Marital status: single Children: none Living Arrangements: shares an apartment with a cousin Environment at home: supportive, but does not like to talk about his problems Education: high school diploma/GED Occupation / Income Source: unemployed : [employer] Legal history: recent DWI Temple: spiritual, believes in God, not part of an organized amish Ethnic and Cultural factors: none Other requests: none Significant Developmental / Childhood/ Social history: Adopted at age 7 by biological uncle and aunt, and raised after that with 7 sibs (some biological cousins, others adopted). He describes his adoptive family as supportive but declines to talk about his earlier childhood saying I've dealt with that, and he was in counseling from ages [age]. He describes that he enjoyed and did well at his [employer] until being laid off 3 weeks ago as a result of the company's financial problems. Abuse History: None after age 7 endorsed. Declines to discuss prior to that. Advanced Directives Medical: Advance Directive discussion clinically contraindicated. Psychiatric: Patient does not have Advance Directive. Review of Systems: Review of systems: System Negative Positive Comments Constitutional x Eyes x ENT x Nasal congestion for past week Cardiovascular x Pulmonary x Cough Gastrointestinal x Genitourinary x Muscoloskeletal x Integument/breast x Neurological x Psychiatric x see HPI above Endocrine x Hematologic/Lymph x Allergic/Immunologic x Objective: Patient Vitals in the past 24 hrs: BP Temp Temp src Pulse Resp SpO2 Weight 03/20/11 1729 143/64 mmHg 36.6 ??C (97.9 ??F) Tympanic 96 16 100 % 73.483 kg (162 lb) Labs: No results found for this or any previous visit (from the past 24 hour(s)). Physical Exam: General: medium build, appropriate grooming and hygiene, tearful at times Head: normocephalic, atraumatic Eyes: PERRL, anicteric, mild conjunctival injection bilaterally, no exudate ENT: oropharynx pink and moist, no exudate, good dentition Neck: supple, trachea midline, no lymphadenopathy or thyromegaly Lungs: CTA bilaterally, no crackles or wheezes, non-labored breathing Heart: regular S1S2, no murmur/rub/gallop Abdomen: non-distended, BS+, soft, non-tender Skin: acyanotic, warm, dry, no lesions or rash Ext: atraumatic, distal pulses 2+, no pitting edema Neuro: cn II-XII intact, strength nl, tone nl, reflexes nl/symmetric, coordination nl, gait nl AIMS: Muscles of Facial Expression: None, normal Lips and Perioral Area: None, normal Jaw: None, normal Tongue: None, normal Upper (arms, wrists, hands, fingers): None, normal Lower (legs, knees, ankles, toes): None, normal Neck, shoulders, hips: None, normal Severity of abnormal movement: None, normal Incapacitation due to abnormal movements: None, normal Patient's awareness of abnormal movements (rate only patient's report): No Awareness Current problems with teeth and/or dentures?: No Does patient usually wear dentures?: No Mental Status Evaluation: Appearance: young man w/ short-clipped hair and medium build, dressed in papers scrubs Behavior: Cooperative and Poor eye contact Psychomotor activity: Decreased Musculoskeletal: Steady Gait: steady Capacity for Activities of Daily Living: adequate Speech: well-articulated, fluent, soft, slow to normal rate, normal prosody, moderate spontaneity Mood: Depressed Affect: congruent with mood and restricted, slightly tearful for most of interview Perceptual Disturbances: none evident or endorsed Thought Process: goal directed and tight associations Thought Content: hopelessness, helplessness, worthlessness, excessive guilt and cognitive distortions Impulses: suicidal ideation with plan to cut his wrists using a knife he owns Orientation: person, place, time/date and situation Attention: intact Concentration: intact Fund of Knowledge: sales solutions representative of education level Capacity for Abstraction: intact Language: normal Short Term Memory: intact Snf Memory: intact Insight: good Judgment: fair Assessment: DIAGNOSTIC ASSESSMENT Case Summary: 21 y.o. 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 His symptoms, demographics, seemingly traumatic early history, and potentially lethal plans involving weapons to which he has access suggest a significant short-term risk of suicide calling for treatment in a supervised setting for safety. Limited access to firearms will be important in disposition planning. Pharmacologically, pt could potentially benefit from straightforward treatment such as an SSRI or bupropion. Pt's symptoms meet criteria for a major depressive episode, without endorsed or evident psychotic symptoms or history suggestive of isaac or hypomania. He has no known medical problems and does not endorse substance use likely to account directly for his psychiatric symptoms, though consequences ofalcohol use contributed to his recent stressors. 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 Family psychiatric history is not entirely clear due to history of adoption. Has some awareness of parents of origin. Adopted into family by aunt and uncle. Has access to guns. His SI is limited as it is but he claims he would never use a gun to take his life in a sort of reverent, respectful manner. Will address again. Multiaxial Diagnostic Impression (including Differential Diagnosis) [place] I: MDD (single episode, moderate) [place] II: Deferred [place] III: None known [place] IV: Legal problems (DWI), unemployment, financial problems [place] V: 11-20 some danger of hurting self or others possible OR occasionally fails to maintain minimal personal hygiene OR gross impairment in communication SUICIDE RISK ASSESSMENT: Modifiable Risk Factors: Current suicidal ideation;Current plan for suicide;Means available;Potential lethality of means;Capacity to take action (increased organization/increased energy);Recent losses or disruption of care;Psychic distress/anxiety/pain;Vulnerability to painful affective states;Hopelessness;Helplessness;Loss of pleasure/interest;Decreased self esteem;Despair Non-modifiable risk factors: History of rehearsal behaviors for suicide;Male;;, , single;Unemployment;Mood disorder;Childhood abuse/neglect;Family history of psychiatric illness Protective factors: Sense of responsibility to family & social supports/connections;Positive coping skills/potential;Capacity to establish therapeutic alliance;Willingness to comply with treatment plan Overall Acute Risk Rating: moderate Overall Chronic Risk Rating: moderate Interventions / Plan: IMMEDIATE PLAN OF TREATMENT: 1. Admit voluntarily to [place] [facility], level 4, frequent observation. 2. Check routine labs (CBC, lytes, liver panel, TSH, B12, folate, UA/UDS). 3. Defer discussion of medication options to the day team. 4. Start nicotine replacement. 5. Obtain collateral history. 6. Work at therapeutic alliance and diagnostic clarification. 7. Encourage participation in therapeutic milieu. Acuity / Indications for admission: This patient requires active treatment in the Inpatient Psychiatric Unit because of the following: Threat to self requiring 24-hour professional observation. Mental disorder causing major disability in social, interpersonal, occupational, and/or educationalfunctioning that is leading to dangerous or life-threatening functioning and that can only be addressed in an acute inpatient setting. PLAN TO RESTRICT ACCESS TO FIREARMS (outpatient setting): Access to firearms? Yes - at home and via [employer], will need to address in d/c planning RHIANNON DIEGO MD 03/20/2011 19:37 Attending attestation: I saw and evaluated the patient today. I have reviewed and agree with the admitting resident's findings and plan of care as documented in the admission database with edits indicated in italics. I have reviewed the nursing database. I have discussed the plan with the treatment team. sincere young man whose depression and SI were revealed during a routine screening. His superiors have encouraged he seek help. He is dramatically relived of burdens he has carried for some time and is improving simply by being in this supportive environment. EtOH is apparently limited though he received a DUI recently. Early life is an issue also but he was adopted by family so has some sense ofplace. He feels cared for in the family. This appears to be a major depressive episode of moderate severity and we discussed trial of SSRI and f/u with therapy, which plans to provide. SI minimal at this time. Nicholas Moreno MD, MD Attending Psychiatrist [id number] documented in this encounter ED Notes * Isaac Mar RN - 03/20/2011 8892 EDT Admission report called to Abran GRISSOM/ [facility]. * Rachel Mehta PA - 03/20/2011 1918 EDT DOS: 03/20/2011 Chief Complaint Patient presents with ??? Suicidal Patient currently on active duty in [employer]. Expressed to friend today he has a plan to kill himself with a knife. No thoughts of HI. No drugs or ETOH today. Patient calm and cooperative in triage. Arrives to ED with friend whom plans on staying with him while in ED. The patient is a 21 y.o. male who presents today with Suicidal HPI Comments: Patient presents with suicidal ideation and a plan. He is from [facility] in [facility] for [employer] duty. He reports no prior psychiatric history and no prior suicidal ideation. 2-3 weeks ago he reports that he got a DUI and shortly after was layed off from his job. He reports suicidal thoughts since that time, worsening recently and has thought of using a knife. 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 He reports that he has had normal sleep patterns and appetite during this time, no homicidal ideation. No alcohol or drug use over past several days. He reports a cough and some congestion for a few days, but no other physical complaints and no pain. Suicidal The primary symptoms include dysphoric mood. The primary symptoms do not include hallucinations. Additional symptoms of the illness do not include no appetite change, no headaches or no abdominal pain. Review of Systems Constitutional: Negative for fever and appetite change. Respiratory: Positive for cough. Gastrointestinal: Negative for abdominal pain. Genitourinary: Negative for dysuria and frequency. Neurological: Negative for weakness, numbness and headaches. Psychiatric/Behavioral: Positive for suicidal ideas and dysphoric mood. Negative for hallucinations, sleep disturbance and self-injury. The patient is nervous/anxious. History reviewed. No pertinent past medical history. History reviewed. No pertinent past surgical history. No Known Allergies History Substance Use Topics ??? Smoking status: Current Everyday Smoker -- 0.2 packs/day for 4 years ??? Smokeless tobacco: Current User ??? Alcohol Use: No Family History Problem Relation Age of Onset ??? Diabetes Mother ??? Diabetes Maternal Uncle ??? Diabetes Maternal Grandmother Vital Signs Temp: 36.4 ??C (97.5 ??F) Temp src: Tympanic Pulse: 71 Resp: 14 SpO2: 97 % BP: 134/77 mmHg BP Device: BP Machine Patient Position: Sitting BP Cuff Location: Right arm O2 Device: None (Room air) Physical Exam Nursing note and vitals reviewed. Constitutional: He is oriented to person, place, and time. He appears well- developed and well-nourished. No distress. HENT: Head: Normocephalic and atraumatic. Right Ear: External ear normal. Left Ear: External ear normal. Eyes: Conjunctivae are normal. Neck: Normal range of motion. Neck supple. Cardiovascular: Normal rate, regular rhythm and normal heart sounds. Pulmonary/Chest: Effort normal and breath sounds normal. Abdominal: Soft. Bowel sounds are normal. No tenderness. Neurological: He is alert and oriented to person, place, and time. Skin: Skin is warm. He is not diaphoretic. Psychiatric: His speech is normal and behavior is normal. Judgment normal. His mood appears anxious. Thought content is not paranoid and not delusional. Cognition and memory are normal. He exhibits adepressed mood. He expresses suicidal ideation. He expresses no homicidal ideation. He expresses suicidal plans. He expresses no homicidal plans. Tearful at times Radiology orders: None Procedures ED Course: A medical screening exam was performed. AVSS, patient without prior psychiatric history, now with suicidal ideation and plan after upsetting events. Case discussed with crisis, patient admitted to psychiatry. Disposition: Admitted The patient's pain was managed to an adequate level weighing risk vs. benefit of further medications. Upon departure from the Emergency Department, the patient's pain was 0 on a zero to ten scale. Condition at departure from the Emergency Department: Stable Discharge Prescriptions No Discharge Prescriptions for this patient MDM Number of Diagnoses or Management Options Suicidal ideation: Diagnosis management comments: 3 1. Suicidal ideation (V62.84) PCP: MD HYDE PCP 03/23/2011 14:48 * Isaac Mar RN - 03/20/2011 7195 EDT Awaiting crisis. * Isaac Mar RN - 03/20/2011 1746 EDT Eduin BATRES in family room with evaluate patient. * César Cardona - 03/20/2011 1708 EDT TCALL: BRICE RAYMOND [address] [facility] REFERS PT TO ED FOR EVAL. CC: SUICIDAL, WITH PLAN (GMD) documented in this encounter Miscellaneous Notes * Plan of Care - Maisha Moreon - 03/25/2011 1458 EDT Problem: ALTERATION IN MOOD Goal: Desires Improved Mood Outcome: Met This Shift Active Multi-Disciplinary problems: ALTERATION IN SLEEP [448442] (03/21/11) INEFFECTIVE COPING [761695] (03/21/11) SELF CARE DEFICIT [506554] (03/21/11) ALTERATION IN MOOD [466759] (03/21/11) ALTERED THOUGHT PROCESSES [617359] (03/21/11) Data: Up in milieu for most of day .Social with male peer.Affect full and bright.Anticipating discharge today.Denies SI/SH thoughts and agrees to remain safe. Action: Supportive 1:1 interactions.Assessed for safety and pain. Response: [place] base accompanied by Margarita and peers. Maisha Moreno RN 03/25/2011 14:51 * Plan of Care - Kimi Lin RN - 03/25/2011 0612 EDT Problem: ALTERATION IN SLEEP Goal: Reports Nightly Sleep, Duration And Quality Outcome: Met This Shift Active Multi-Disciplinary problems: ALTERATION IN SLEEP [551190] (03/21/11) INEFFECTIVE COPING [538404] (03/21/11) SELF CARE DEFICIT [216108] (03/21/11) ALTERATION IN MOOD [964709] (03/21/11) ALTERED THOUGHT PROCESSES [183341] (03/21/11) Data: See observation record. Action: Continued on every 30 minute observations through the night. Response: Appeared to sleep comfortably x 7 hours. Kimi Lin RN 03/25/2011 6:24 * Plan of Care - Alondra Camp RN - 03/24/2011 2116 EDT Problem: ALTERATION IN MOOD Goal: Desires Improved Mood Outcome: Ongoing Active Multi-Disciplinary problems: ALTERATION IN SLEEP [533032] (03/21/11) INEFFECTIVE COPING [762588] (03/21/11) SELF CARE DEFICIT [797737] (03/21/11) ALTERATION IN MOOD [133905] (03/21/11) ALTERED THOUGHT PROCESSES [657291] (03/21/11) Data: Mood good, bright affect. Pt is social in the unit with others, attends [employer] group and eats with peers. Plays cards later in the evening with others on the unit. 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 No distress. Action: monitor Response: stable, future oriented. Looking forward to discharge. Alondra Camp RN 03/24/2011 21:13 * Plan of Care - Doris Tubbs - 03/24/2011 1453 EDT Problem: INEFFECTIVE COPING Goal: Verbalizes Ways To Manage Anxiety Outcome: Ongoing Active Multi-Disciplinary problems: ALTERATION IN SLEEP [865662] (03/21/11) INEFFECTIVE COPING [184167] (03/21/11) SELF CARE DEFICIT [590121] (03/21/11) ALTERATION IN MOOD [357641] (03/21/11) ALTERED THOUGHT PROCESSES [125772] (03/21/11) Data: Was anxious in the morning, but did not seem to be aware of the anxiety. Was social with peers. Ate in the dining room. Attended groups. Stated that several members of the guard visited him over the weekend. Was aware of his over willingness to please. Action: Assess for suicidal ideation. Monitor for intensity of anxiety. Offer one to one. Encouragegroups. Utilize teaching opportunities. Response: Remained very anxious but did not voice suicidal ideation. Was social with peers and participated in groups. Doris Tubbs RN 03/24/2011 14:42 * Plan of Care - Kimi Lin RN - 03/24/2011 0607 EDT Problem: ALTERATION IN SLEEP Goal: Reports Nightly Sleep, Duration And Quality Outcome: Met This Shift Active Multi-Disciplinary problems: ALTERATION IN SLEEP [596573] (03/21/11) INEFFECTIVE COPING [949340] (03/21/11) SELF CARE DEFICIT [965568] (03/21/11) ALTERATION IN MOOD [138751] (03/21/11) ALTERED THOUGHT PROCESSES [441160] (03/21/11) Data: See observation record. Action: Continued on every 30 minute observations through the night. Response: Appeared to sleep comfortably x 7 hours. Kimi Lin RN 03/24/2011 6:06 * Plan of Care - Alondra Camp RN - 03/23/2011 2230 EDT Problem: INEFFECTIVE COPING Goal: Verbalizes Improved Well Being Outcome: Ongoing Active Multi-Disciplinary problems: ALTERATION IN SLEEP [452325] (03/21/11) INEFFECTIVE COPING [841136] (03/21/11) SELF CARE DEFICIT [531577] (03/21/11) ALTERATION IN MOOD [390210] (03/21/11) ALTERED THOUGHT PROCESSES [737063] (03/21/11) Data: Pt is social on unit. His affect is bright and cheerful. Reports he is doing very well. Expresses no needs. Went out on 30 min pass X1 and visited with fellow guard members. Action: monitor Response: topher Camp RN 03/23/2011 22:26 * Plan of Care - Nettie Alvarez RN - 03/23/2011 1050 EDT Problem: ALTERATION IN MOOD Goal: Desires Improved Mood Outcome: Ongoing Active Multi-Disciplinary problems: ALTERATION IN SLEEP [154570] (03/21/11) INEFFECTIVE COPING [774778] (03/21/11) SELF CARE DEFICIT [083960] (03/21/11) ALTERATION IN MOOD [794118] (03/21/11) ALTERED THOUGHT PROCESSES [289745] (03/21/11) Data: Patient denied suicidal and homicidal ideation. Feels safe on the unit. Says he feels great. Pleasant, social. Attended groups. Needs physician to fill out form (in front of chart) on 03/24/11. Out for break with 2 unit members which went well. Patient easily engaged. Action: Patient on routine observations for patient safety. Assessed S.I./S.H./H.I. Assessed pain/vs. Encouraged groups. Supportive interactions.1-1. Completed nursing data base. Response: Improved-good shift. Nettie Alvarez RN 03/23/2011 * Plan of Care - Ebony Carroll - 03/23/2011 0625 EDT Problem: ALTERATION IN SLEEP Goal: Reports Nightly Sleep, Duration And Quality Intervention: Document duration, quality of sleep and reasons Active Multi-Disciplinary problems: ALTERATION IN SLEEP [586664] (03/21/11) INEFFECTIVE COPING [136882] (03/21/11) SELF CARE DEFICIT [700760] (03/21/11) ALTERATION IN MOOD [322524] (03/21/11) ALTERED THOUGHT PROCESSES [079067] (03/21/11) Data: pt slept all night Action: monitored on routine observations Response: pt sleeping, no signs of distress. Will continue to monitor. Ebony Carroll RN 03/23/2011 6:19 * Plan of Care - Alondra Camp RN - 03/22/2011 2250 EDT Problem: ALTERATION IN MOOD Goal: Desires Improved Mood Outcome: Met This Shift Active Multi-Disciplinary problems: ALTERATION IN SLEEP [925008] (03/21/11) INEFFECTIVE COPING [892950] (03/21/11) SELF CARE DEFICIT [126507] (03/21/11) ALTERATION IN MOOD [552205] (03/21/11) ALTERED THOUGHT PROCESSES [898190] (03/21/11) Data: Pt reports that he is in a good mood, denies depression. He is feeling more in control of thestressors that led him to come into the hospital. Pt states the major reason he was feeling hopeless was around his financial situation. PT is feeling more positive b/c he got a call back for a job at [employer] and was feeling better since speaking with the tx team. Pt feels very supported by his [employer]. Spent most of the shift in the milieu watching tv and socializing with others. Action: monitor Response: stable Alondra Camp RN 03/22/2011 22:46 * Plan of Care - Charleen Connolly RN - 03/22/2011 1500 EDT Problem: ALTERATION IN MOOD Goal: Desires Improved Mood Outcome: Ongoing Active Multi-Disciplinary problems: ALTERATION IN SLEEP [771905] (03/21/11) INEFFECTIVE COPING [241414] (03/21/11) SELF CARE DEFICIT [885407] (03/21/11) ALTERATION IN MOOD [026683] (03/21/11) ALTERED THOUGHT PROCESSES [156790] (03/21/11) CARMEN note for day shift 03/22/11 Data: depression Action: Maintained on routine observations and provided safety in environment of care. Assessments:behavior, pain, suicidality. Monitored pass activity. Re- enforced functional coping patterns. Encouraged continued participation in milieu. 1:1 with focus on patient strengths. Administration of medith assessment of efficacy and SE. Response: Pt has showered and is dressed in street clothes. He has been in milieu, initiating appropriate interactions with staff as well as peers. He went on 30 minute break off unit with [employer] colleagues, which went well, and he went off unit for a garden group. He makes good eye contact, smiles,and is future oriented. Denies SI. Denies GI and other SE of Zoloft. Kevin Connolly RN 03/22/2011 * Plan of Care - Ebony Carroll - 03/22/2011 0616 EDT Problem: ALTERATION IN SLEEP Goal: Reports Nightly Sleep, Duration And Quality Intervention: Document duration, quality of sleep and reasons Active Multi-Disciplinary problems: ALTERATION IN SLEEP [988598] (03/21/11) INEFFECTIVE COPING [759476] (03/21/11) SELF CARE DEFICIT [461056] (03/21/11) ALTERATION IN MOOD [244862] (03/21/11) ALTERED THOUGHT PROCESSES [691123] (03/21/11) Data: pt slept all night. Please see form in pt's blue chart. 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 Action: monitored on routine observations Response: pt sleeping, no signs of distress. Will continue to monitor Ebony Carroll RN 03/22/2011 6:16 * Plan of Care - Alondra Camp RN - 03/21/2011 2208 EDT Problem: INEFFECTIVE COPING Goal: Verbalizes Alternatives To Suicide Outcome: Ongoing Active Multi-Disciplinary problems: ALTERATION IN SLEEP [352734] (03/21/11) INEFFECTIVE COPING [855283] (03/21/11) SELF CARE DEFICIT [810470] (03/21/11) ALTERATION IN MOOD [412514] (03/21/11) ALTERED THOUGHT PROCESSES [611548] (03/21/11) Data: Pt reports he is doing a lot better than when he arrived on the unit. He denies SI. He is social with peers on the unit. Pt visited with his troop members later in the evening. He went on 30 min pass X1. Reports pass and visit went very well, pt states They are like family to me. No pain. Requests a reading book for later in the evening. Calm and cooperative. Action: monitor Response: stable Alondra Camp RN 03/21/2011 22:04 * Plan of Care - Doris Tubbs - 03/21/2011 1536 EDT Problem: INEFFECTIVE COPING Goal: Verbalizes Control Of Suicidal Thoughts/Behaviors Outcome: Ongoing Active Multi-Disciplinary problems: ALTERATION IN SLEEP [732894] (03/21/11) INEFFECTIVE COPING [031055] (03/21/11) SELF CARE DEFICIT [954095] (03/21/11) ALTERATION IN MOOD [022207] (03/21/11) ALTERED THOUGHT PROCESSES [715983] (03/21/11) Data: Denied being suicidal. Slept most of the morning. Was anxious at times. Ate meals in the dining room. Stayed out in the group area most of the afternoon. Was social with peers and staff. Watched television and read the news paper. Action: Assess for suicidal ideation. Offer one to one. Encourage groups. Maintain frequents for safety. Utilize teaching opportunities. Response: Remained depressed but denied suicidal ideation. Was withdrawn in his room this morning. In the afternoon the patient was out on the unit. Frequents was discontinued and was placed on routine observation, danger level 3. Has two - 30 minute passes off with support person per day. Doris Tubbs RN 03/21/2011 15:23 * Plan of Care - Ebony Carroll - 03/21/2011 0608 EDT Problem: ALTERATION IN SLEEP Goal: Reports Nightly Sleep, Duration And Quality Intervention: Document duration, quality of sleep and reasons Active Multi-Disciplinary problems: ALTERATION IN SLEEP [752801] (03/21/11) Data: pt slept all night Action: monitored on frequent observations Response: pt awake around 0630. No signs of distress. Currently in shower. Ebony Carroll RN 03/21/2011 6:08 * Plan of Care - Arnaldo Wheeler - 03/20/2011 2318 EDT D: Patient admitted to [facility] 3 @ 2130. Patient???s chief complaint is thougts of suicide by knife due to career problems.. Symptoms observed/reported were Guilt and remorse for recent legal trouble. No income since taking a forced hiatus from the [employer], which he calls his family. Very gung ho. . A: Initial Nursing interventions unique to this patient were orient to the unit and settle in for sleep. R: Patient has responded positively and has settled into the unit, is very eager to engage in tx and return to his unit. * Scanned Note-Null - Data Control Assistant, Scan - 03/20/2011 0000 EDT * Scanned Note-Null - Data Control Assistant, Scan - 03/20/2011 0000 EDT * Scanned Note-Null - Data Control Assistant, Scan - 03/20/2011 0000 EDT * Scanned Note-Null - Data Control Assistant, Scan - 03/20/2011 0000 EDT * Scanned Note-Null - Data Control Assistant, Scan - 03/20/2011 0000 EDT * Scanned Note-Null - Data Control Assistant, Scan - 03/20/2011 0000 EDT * Plan of Care - Data Control Assistant, Scan - 03/20/2011 0000 EDT documented in this encounter Plan of Treatment Not on file documented as of this encounter Procedures Procedure Name Priority Date/Time Associated Diagnosis Comments URINALYSIS WITH MICROSCOPIC IF POSITIVE Routine 03/21/2011 14:15 EDT UA REFLEX Routine 03/21/2011 14:15 EDT URINE CULTURE IF POSITIVE Routine 03/21/2011 14:15 EDT DRUG SCREEN 6 Routine 03/21/2011 14:15 EDT SCREENING GLUCOSE Routine 03/20/2011 23: 07 EDT COMPLETE BLOOD COUNT AND DIFFERENTIAL STAT 03/20/2011 23:07 EDT BUN Routine 03/20/2011 23:07 EDT ALT Routine 03/20/2011 23:07 EDT AST Routine 03/20/2011 23:07 EDT TSH Routine 03/20/2011 23:07 EDT ALKALINE PHOSPHATASE Routine 03/20/2011 23:07 EDT MAGNESIUM Routine 03/20/2011 23:07 EDT GGT Routine 03/20/2011 23:07 EDT FOLATE Routine 03/20/2011 23:07 EDT VITAMIN B12 Routine 03/20/2011 23:07 EDT CREATININE Routine 03/20/2011 23:07 EDT CALCIUM Routine 03/20/2011 23:07 EDT BILIRUBIN, TOTAL Routine 03/20/2011 23:0 7 EDT ALBUMIN Routine 03/20/2011 23:07 EDT ELECTROLYTES Routine 03/20/2011 23:07 EDT documented in this encounter Results * UA REFLEX (03/21/2011 14:15 EDT) UA Billing Microscopic not indicated. [facility] 03/21/2011 14:1 5 EDT 03/21/2011 14:47 EDT us Rhiannon Diego MD URINALYSIS ORDERABLES Final Result Performing Organization Address City/State/[facility] Co de Phone Number [facility] [address] [place] [address] * DRUG SCREEN 6 (03/21/2011 14:15 EDT) Amphetamine Screen, Urine Negative screen. Confirmation testing available upon request. Suitable for medical purposes only. Will not detect all drugs within class. Cutoff = 1000 ng/ml [facility] Barbiturate Screen, Urine Negative screen. Confirmation testing available upon request. Suitable for medical purposes only. Will not detect all drugs within class. Cutoff = 300 ng/ml [facility] Benzodiazepine Screen, Urine Negative screen. Confirmation testing available upon request. Suitable for medical purposes only. Will not detect all drugs within class. Assay less sensitive to Lorazepam and metabolites. Cutoff = 200 ng/ml [facility] Cannabinoid Scrn, Ur Presumptive positive, interpret with caution. Confirmation testing available upon request. Suitable for medical purposes only. Will not detect all drugs within class. Cutoff = 50 ng/ml [facility] Cocaine Metabolites, Ur Negative screen. Confirmation testing available upon request. Suitable for medical purposes only. Will not detect all drugs within class. Cutoff = 300 ng/ml [facility] Opiate Scrn, Ur Negative screen. Confirmation testing available upon request. Suitable for medical purposes only. Will not detect all drugs within class. Cutoff = 300 ng/ml Does not detect oxycodone, oxycontin or methadone. [facility] Urine specimen (specimen) 03/21/2011 14:15 EDT 03/21/2011 14:47 EDT Rhiannon Diego MD URINALYSIS ORDERABLES Final Result Performing Organization Address [facility] Co de Phone Number [facility] [address] [place] [address] * URINE CULTURE IF UA POSITIVE - NON POCT URINALYSIS ONLY (03/21/2011 14:15 EDT) Culture if Indicated Culture not indicated by urinalysis results. [facility] Urine specimen (specimen) 03/21/2011 14:15 EDT 03/21/2011 14:47 EDT Rhiannon Diego MD MICROBIOLOGY - GENERAL ORDER EVONNE Final Result Performing Organization Address [facility] de Phone Number [facility] [address] [place] [address] * URINALYSIS (03/21/2011 14:15 EDT) Color, UA Yellow [facility] Clarity, UA Clear [facility] Glucose, UA Neg NEG [facility] Bilirubin, UA Neg NEG [facility] Ketones, UA Neg NEG [facility] Specific [place], Urine 1.015 1.001 - 1.035 [facility] Blood, UA Neg NEG [facility] pH, UA 7.0 4.6 - 8.0 [facility] Protein, UA Neg NEG [facility] Urobilinogen, UA 0.2 0.2 - 1.0 E.U./dl [facility] Nitrite, UA Neg NEG [facility] Leuk Esterase Neg NEG [facility] Urine specimen (specimen) 03/21/2011 14:15 EDT 03/21/2011 14:47 EDT Rhiannon Diego MD URINALYSIS ORDERABLES Final Result Performing Organization Address [facility] Co de Phone Number [facility] [address] [place] [address] * BILIRUBIN, TOTAL (03/20/2011 23:07 EDT) Bilirubin, Total 0.5 0.2 - 1.3 mg/dl [facility] Blood specimen (specimen) 03/20/2011 23:07 EDT 03/20/2011 23:14 EDT Rhiannon Diego MD CHEMISTRY & BLOOD GAS ORDERA BLES Final Result Performing Organization Address [facility] de Phone Number [facility] [address] [place] [address] * MAGNESIUM (03/20/2011 23:07 EDT) Magnesium 2.0 1.7 - 2.8 mg/dl [facility] Blood specimen (specimen) 03/20/2011 23:07 EDT 03/20/2011 23:14 EDT Rhiannon Diego MD CHEMISTRY & BLOOD GAS ORDERA BLES Final Result Performing Organization Address [facility] de Phone Number [facility] [address] [place] [address] * CALCIUM (03/20/2011 23:07 EDT) Pathologist [facility] Calcium 9.5 8.5 - 10.5 mg/dl [facility] Calculated Calcium 9.1 8.5 - 10.5 mg/dl [facility] Blood specimen (specimen) 03/20/2011 23:07 EDT 03/20/2011 23:14 EDT Rhiannon Diego MD CHEMISTRY & BLOOD GAS ORDERA BLES Final Result Performing Organization Address [facility] de Phone Number [facility] [address] [place] [address] * FOLATE (03/20/2011 23:07 EDT) Folate 14.8 ng/mL [facility] Comment: Deficient: ??Less than 3.4 ng/mL Indeterminate: ??3.4-5.4 ng/mL Normal: ??Greater than 5.4 ng/mL Blood specimen (specimen) 03/20/2011 23:07 EDT 03/20/2011 23:14 EDT Rhiannon Diego MD CHEMISTRY & BLOOD GAS ORDERA BLES Final Result Performing Organization Address [facility] de Phone Number [facility] [address] [place] [address] * VITAMIN B12 (03/20/2011 23:07 EDT) Pathologist [facility] Vitamin B-12 698 211 - 911 pg/ml [facility] Blood specimen (specimen) 03/20/2011 23:07 EDT 03/20/2011 23:14 EDT Rhiannon Diego MD CHEMISTRY & BLOOD GAS ORDERA BLES Final Result Performing Organization Address [facility] de Phone Number [facility] [address] [place] [address] * HEMAGRAM AND DIFFERENTIAL (03/20/2011 23:07 EDT) [facility] WBC 7.47 4.0 - 10.4 K/cmm [facility] RBC 5.22 4.36 - 5.78 M/cmm [facility] Hemoglobin 16.2 13.8 - 17.3 gm/dl [facility] HCT 46.5 39.5 - 50.2 % [facility] MCV 89 81 - 95 fl [facility] MCH 31.0 27.6 - 33.0 pg [facility] MCHC 34.8 32.8 - 36.4 gm/dl [facility] PLT 210 141 - 320 K/cmm [facility] RDW-CV 13.3 11.8 - 14.1 % [facility] % Neutrophils 55.4 45.5 - 79.7 % [facility] % Lymphocytes 35.9 15.0 - 46.8 % [facility] % Monocytes 6.2 1.8 - 12.0 % [facility] % Eosinophils 1.6 0.6 - 6.9 % [facility] % Basophils 0.9 0.2 - 1.4 % [facility] ABS Neutrophils 4.14 2.20 - 8.85 K/cmm [facility] ABS Lymphs 2.68 1.09 - 3.30 K/cmm [facility] ABS Monocytes 0.46 0.1 - 0.8 K/cmm [facility] ABS Eosinophils 0.12 0.03 - 0.61 K/cmm [facility] ABS Basophils 0.07 0.01 - 0.11 K/cmm [facility] Type of Diff: Automated [facility] Blood specimen (specimen) 03/20/2011 23:07 EDT 03/20/2011 23:14 EDT Rhiannon Diego MD PACKAGES & DNA PROBE ORDERAB LES Final Result Performing Organization Address [facility] de Phone Number [facility] [address] [place] [address] * TSH (03/20/2011 23:07 EDT) TSH 1.01 0.35 - 5.00 uIU/ml [facility] Blood specimen (specimen) 03/20/2011 23:07 EDT 03/20/2011 23:14 EDT Rhiannon Diego MD CHEMISTRY & BLOOD GAS ORDERA BLES Final Result Performing Organization Address [facility] Co de Phone Number [facility] [address] [place] [address] * ALT (03/20/2011 23:07 EDT) ALT 35 21 - 72 U/L [facility] Blood specimen (specimen) 03/20/2011 23:07 EDT 03/20/2011 23:14 EDT Rhiannon Diego MD CHEMISTRY & BLOOD GAS ORDERA BLES Final Result Performing Organization Address [facility] Co de Phone Number [facility] [address] [place] [address] * AST (03/20/2011 23:07 EDT) AST 29 15 - 46 U/L [facility] Blood specimen (specimen) 03/20/2011 23:07 EDT 03/20/2011 23:14 EDT us Rhiannon Diego MD CHEMISTRY & BLOOD GAS ORDERA BLES Final Result Performing Organization Address [facility] de Phone Number [facility] [address] [place] [address] * ALBUMIN (03/20/2011 23:07 EDT) Albumin 4.8 3.4 - 4.9 g/dl [facility] Blood specimen (specimen) 03/20/2011 23:07 EDT 03/20/2011 23:14 EDT us Rhiannon Diego MD CHEMISTRY & BLOOD GAS ORDERA BLES Final Result Performing Organization Address [facility] de Phone Number [facility] [address] [place] [address] * GGT (03/20/2011 23:07 EDT) GGT 16 15 - 73 U/L [facility] Blood specimen (specimen) 03/20/2011 23:07 EDT 03/20/2011 23:14 EDT us Rhiannon Diego MD CHEMISTRY & BLOOD GAS ORDERA BLES Final Result Performing Organization Address [facility] de Phone Number [facility] [address] [place] [address] * ALKALINE PHOSPHATASE (03/20/2011 23:07 EDT) Total Alkaline Phosphatase 55 38 - 126 U/L [facility] Blood specimen (specimen) 03/20/2011 23:07 EDT 03/20/2011 23:14 EDT Rhiannon Diego MD CHEMISTRY & BLOOD GAS ORDERA BLES Final Result Performing Organization Address [facility] de Phone Number [facility] [address] [place] [address] * CREATININE (03/20/2011 23:07 EDT) Pathologist [facility] Creatinine 0.93 0.7 - 1.5 mg/dl [facility] GFR, Calculated >60 ml/min/1.7 3m2 [facility] Blood specimen (specimen) 03/20/2011 23:07 EDT 03/20/2011 23:14 EDT Rhiannon Diego MD CHEMISTRY & BLOOD GAS ORDERA BLES Final Result Performing Organization Address [facility] de Phone Number [facility] [address] [place] [address] * BUN (03/20/2011 23:07 EDT) Pathologist [facility] BUN 16 10 - 26 mg/dl [facility] Blood specimen (specimen) 03/20/2011 23:07 EDT 03/20/2011 23:14 EDT Rhiannon Diego MD CHEMISTRY & BLOOD GAS ORDERA BLES Final Result Performing Organization Address [facility] de Phone Number [facility] [address] [place] [address] * (ABNORMAL) ELECTROLYTES (03/20/2011 23:07 EDT) Pathologist [facility] Sodium 143 136 - 145 mEq/L [facility] Potassium 4.1 3.5 - 5.0 mEq/L [facility] Chloride 105 96 - 110 mEq/L [facility] CO2 23(L) 24 - 32 mEq/L [facility] Blood specimen (specimen) 03/20/2011 23:07 EDT 03/20/2011 23:14 EDT us Rhiannon Diego MD CHEMISTRY & BLOOD GAS ORDERA BLES Final Result Performing Organization Address City/[facility] Co de Phone Number [facility] [address] [place] [address] * SCREENING GLUCOSE (03/20/2011 23:07 EDT) Glucose, Screening 80 70 - 100 mg/dl [facility] Blood specimen (specimen) 03/20/2011 23:07 EDT 03/20/2011 23:14 EDT us Rhiannon Diego MD CHEMISTRY & BLOOD GAS ORDERA BLES Final Result Performing Organization Address City/State/[facility] Co de Phone Number [facility] [address] [place] [address] documented in this encounter Visit Diagnoses Diagnosis Suicidal ideation- Primary Depression Depressive disorder, not elsewhere classified documented in this encounter Administered Medications Inactive Administered Medications - up to 3 most recent administrations Medication Order MAR Action Action Date Dose Rate Site nicotine (NICOTROL) 10 mg inhaler 1 Inhaler 1 Inhaler, inhalation, EVERY 2 HOURS PRN, Starting on Thu03/21/11 at 1427, Until Thu03/25/11 at 1652, Smoking Cessation, Routine Given 03/21/2011 18:16 EDT sertraline (ZOLOFT) tablet 50 mg 50 mg, oral, DAILY, First dose on Thu03/21/11 at 1445, Until Discontinued, Routine Given 03/25/2011 9:09 EDT 50 mg Given 03/24/2011 8:23 EDT 50 mg Given 03/23/2011 9:12 EDT 50 mg documented in this encounter Active and Recently Administered Medications Times are shown in EDT. Scheduled Medication Order 03/23/2011 03/24/2011 03/25/2011 sertraline (ZOLOFT) tablet 50 mg 50 mg, oral, DAILY, First dose on Thu03/21/11 at 1445, Until Discontinued, Routine 911 (Given - Provider: Nettie Alvarez RN) 0823 (Given - Provider: Doris Tubbs) 0909 (Given - Provider: Maisha Moreno) documented in this encounter Orders Medications Ordered That Joni ht Not Have Been Administered Count Last Ordered Date First Ordered Date nicotine inhaler (delivery device) 1 2010 Admission Count Last Ordered Date First Orde red Date NOTIFY PPS OF DISCHARGE COMPLETE 1 03/25/20 11 ADMIT TO INPATIENT 2 03/20/2011 PPS NOTIFICATION OF PATIENT ARRIVAL ON UNIT 1 03/20/2011 TEACHING SERVICE 1 03/20/2011 Transfer Count Last Ordered Date First Orde red Date CHANGE ATTENDING TO: 1 03/24/2011 Discharge Count Last Ordered Date First Orde red Date DISCHARGE PATIENT 1 03/25/2011 documented in this encounter Care Teams Barrel Tester And Drainer Relationship Specialty Start Date End Date None, Provider PCP - General 03/20/11 documented as of this encounter
--- OUTSIDE RECORDS SUMMARY | 2024-10-05 12:44 | XMS_ITS | Referral Summary ---
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 Operator Name Role Phone None, Provider Primary Care Provider Unavailabl e Allergies No known active allergies Medications No known medications Active Problems Problem Noted Date Diagnosed Date Depression 03/20/2011 Suicidal ideation 03/20/2011 Social History Tobacco Use Types Packs/Day Years Used Date Smoking Tobacco: Every Day Cigarettes 0.3 4 Smokeless Tobacco: Current Alcohol Use Standard Drinks/Week Comments No 0 (1 standard drink = 0.6 oz pur e alcohol) Sex and Gender Information Value Date Recorded Sex Assigned at Not on file Legal Sex Male 18:53 EST Gender Identity Not on file Sexual Orientation Not on file Last Filed Vital Signs Vital Sign Reading [...] Body Mass Index 24.6 03/22/2011 1100 EDT Mental Status * Because of a physical, mental, or emotional condition, do you have serious difficulty concentrating, remembering, or making decisions? (5 years old or older) Answer Entry Date Author Yes 03/20/2011 23:33 EDT Klever Wheeler Plan of Treatment Not on file Advance Directives For more information, please contact: [phone] * Full Code (Latest Code Status on File) Date Activated Date Inactivated Comments 03/20/2011 22:32 03/25/2011 16:52 Care Teams Twine Reeling Machine Operator Relationship Specialty Start Date End Date None, Provider PCP - General 03/20/11
--- NOTE | 2024-10-05 12:56 | DI.RAD_ITS ---
Exam(s) XR KNEE LT 3V AP,LAT,VERNA EXAM: XR KNEE LT 3V AP,LAT,VERNA CLINICAL HISTORY: PAIN LT KNEE JOINT, [id number]. TECHNIQUE: 2D digital imaging was performed of the left knee. Four images were obtained. AP, later al and PA tunnel views were obtained. COMPARISON: CR XR KNEE LT 4V AP,LAT,VERNA,PAT from 12/29/2023 FINDINGS: BONES: No acute fracture is present. No bony destructive lesion is seen. JOINTS: The knee is normally aligned. No joint effusion is seen. No loose body. SOFT TISSUE: Normal. IMPRESSION: No acute fracture or dislocation. DATA REPOSITORY: RADIATION DOSE DELIVERED:
== END 2024-10-05 13:03 ==
LOC: DI 12:43
PROVIDERS: PCP General Practice; Visit Provider Physician Assistant Medical
DX: M25.562 Pain in left knee (principal)
CPT/HCPCS: 73562

== ENCOUNTER 2025-06-28 18:39 | Emergency (ER) | payer MEDICAID, SELFPAY ==
[2025-06-28] VITALS (7 sets, daily range): BP systolic 114–133; BP diastolic 69–71; PULSE 88–108; RESP 17–20; TEMP 36.6–37.3; O2SAT 93–98
--- NOTE | 2025-06-28 18:58 | ED.GENADUL_ITS ---
Discharge Plan Disposition Patient Disposition: Home Condition: Stable Discharge Details Clinical Impression: Gastritis Primary Care Provider: Unknown,Unknown ED Provider: Manoj Stinson Home Meds and New Rx's Prescriptions: New ondansetron 4 mg tablet,disintegrating 4 mg PO Q8H PRNQty: 30 0RF Discharge Instructions Instructions: Gastritis ED Additional Instructions: You were seen in the emergency department for your nausea and vomiting. We have sent you a prescription for Zofran which is an antinausea medication. You should also start taking egda-fzt-pnropkr famotidine/Pepcid AC twice daily for a trial of relief for about 2 to 3 weeks, please have your primary care refer you to general surgery for possible upper endoscopy if you continue to have the symptoms, return for any increasing abdominal pain, dizziness, intractable nausea or vomiting, persistent vomiting of blood or furazm-[id number] material. Referrals: [facility] [Provider Group] HPI General Date/Time Provider Initiated Documentation: 06/28/25 18:42 . HPI Narrative: 35 year-old male presents to ED today by POV/ambulating with a chief complaint of nausea/vomiting today with onset around 0830- had one episode of coffe-ground emesis. Quality described as generalized nausea, heartburn after eating certain foods, no radiation to chest pain, fever, syncope, dizziness, sweating, focal abdominal pain. Severity is described as moderate. Palliating factors include was seen at [facility] and got Zofran- feels better. Provoking factors include nothing specific. Events leading up to the incident/Associated Symptoms: Patient has no ETOH intake in 7 years. Patient not anticoagulated. Related Data Home Medications ?Medication ?Instructions ?Recorded ?Confirmed ondansetron 4 mg disintegrating 4 mg PO Q8H PRN #30 ta bs 06/28/25 tablet Previous Rx's ?Medication ?Instructions ?Recorded ondansetron 4 mg disintegrating 4 mg PO Q8H PRN #30 ta bs 06/28/25 tablet Allergies Allergy/AdvReac Type Severity Reaction Status Date / Time No Known Allergies Allergy Verified 06/28/25 18:48 General Stated Complaint: Abd Prob RONALD: 3 Review of Systems All systems reviewed & are unremarkable except as noted in HPI and below Exam Narrative Exam Narrative: GENERAL APPEARANCE: Well-nourished, non-toxic, awake and alert, atraumatic, no acute distress. SKIN: Warm, pink, dry, intact, without rashes/lesions/ulcerations. HEAD: Normocephalic, atraumatic, normal hair distribution for gender/age. EYES: Normal conjunctiva, no exudates on lids/lashes. ENT: Nares patent, no circumoral cyanosis, no facial swelling NECK: Supple, trachea midline, painless cervical ROM. LUNGS/CHEST: Non-labored respirations, normal A/P diameter, symmetrical expansion, no chest wall deformity HEART (CV/PV): No peripheral edema, no JVD. ABDOMEN: Soft, non-distended, no guarding, LUQ discomfort to palpation, no rebound tenderness or Rovsing's, negative Gamble's sign. MSK: Normal ROM, no swelling/deformity to bilateral UEs or LEs, moving all extremities without weakness, no cyanosis, spine midline without tenderness, normal curvature. NEURO: Mental Status AAOx4 - alert to person, place, time, events No facial droop, no forehead involvement. Motor: No focal weakness - strength 5/5 in bilateral UEs and LEs, proximal and distal, symmetric. Sensory: sensation intact to light touch globally. Gait normal: patient ambulated without ataxia into ED room. PSYCH: euthymic, cooperative, pleasant, appropriate speech Course Vital Signs Vital signs: Vital Signs Temperature 37.3 C 06/28/25 18:44 Pulse 108 H 06/28/25 18:44 Respiratory Rate 20 06/28/25 18:44 Blood Pressure 114/70 06/28/25 18:44 Pulse Oximetry 94 06/28/25 18:44 Temperature 37.3 C 06/28/25 18:53 Pulse 108 H 06/28/25 18:53 Respiratory Rate 20 06/28/25 18:53 Blood Pressure 114/70 06/28/25 18:53 Blood Pressure Position Sitting 06/28/25 18:53 Pulse Oximetry 94 06/28/25 18:53 Oxygen Delivery Method Room Air 06/28/25 18:53 Oxygen Flow Rate 0 06/28/25 18:53 Pain Level 1 06/28/25 18:53 Medical Decision Making This dictation utilizes [id number] dictation software and may contain unedited grammatical errors. 35 year-old male presents to ED today by POV/ambulating with a chief complaint of nausea/vomiting today with onset around 0830- had one episode of coffe-ground emesis. Quality described as generalized nausea, heartburn after eating certain foods, no radiation to chest pain, fever, syncope, dizziness, sweating, focal abdominal pain. Severity is described as moderate. Palliating factors include was seen at [facility] and got Zofran- feels better. Provoking factors include nothing specific. Events leading up to the incident/Associated Symptoms: Patient has no ETOH intake in 7 years. Patients' medical history: Noncontributory. Family and social history: Uses marijuana regularly, no EtOH use in 7 years. Pertinent exam findings / vital signs include diffuse upper abdominal tenderness mostly on the left without peritoneal signs or rebound tenderness, benign cardiopulmonary status, stable vitals. Differential / pathologies of concern include gastritis, upper GI bleeding, anemia, cannabis hyperemesis syndrome. Diagnostic studies of: -CBC, CMP, lactate, lipase, PT/INR, type and screen, troponin, magnesium, EKG. - CBC shows mild leukocytosis of 13.1 likely in setting of acute vomiting, no left shift, no anemia - PT/INR are benign - Lactate negative - CMP completely benign - Troponin negative - Lipase negative - EKG shows sinus rhythm at 94 bpm with P waves followed by narrow complex QRS w ith normal axis, good R wave progression, no ST changes of ischemia, normal intervals Interventions of: -500mL IVF NS, 40mg IVP protonix. ED Course/Assessment/Plan: 35-year-old male presents with nausea and vomiting with episode of coffee-ground emesis today, takes ibuprofen fairly regularly as he works for [employer], he smokes weed weekly, he was given Zofran at [facility] and feels better by time of arrival, he was given IV Protonix and fluids, he has no anemia, no signs of infection or severe electrolyte derangement, counseled him on Zofran use at home for antinausea relief and taking [id number] famotidine twice daily for 2 to 3 weeks and seeking a referral for upper endoscopy if he continues to have symptoms. Findings not consistent with significant GI bleeding. Disposition of Gastritis. Patient verbalized understanding of the plan and return to ED criteria and engaged in shared decision making. Medical Records Medical records reviewed: Yes I reviewed the patient's medical records. Lab Data Lab results reviewed: Yes I reviewed the patient's lab results. Labs: Laboratory Tests Range/Units 06/28/25 19:25 WBC (4.4-10.8) 10^3/uL 13.16 H RBC (4.36-5.78) 10^6/uL 5.13 Hgb (13.5-17.5) g/dL 14.3 Hct (40.0-50.0) % 42.8 MCV (80-95) fL 83 MCH (27.0-33.0) pg 27.9 MCHC (32.0-36.0) % 33.4 RDW (11.8-14.1) % 13.2 Plt Count (130-400) 10^3/uL 263 MPV (8.0-11.0) fL 9.5 Immature Gran % % 0.3 Neutrophils % % 72.8 Lymphocytes % % 21.6 Monocytes % % 4.9 Eosinophils % % 0.2 Basophils % % 0.2 Nucleated RBC % (0.0-0.3) % 0.0 Absolute Neutrophils (1.2-6.7) 10^3/uL 9.58 H Absolute Lymphocytes (1.2-3.4) 10^3/uL 2.84 Absolute Monocytes (0.1-0.8) 10^3/uL 0.64 Absolute Eosinophils (0.0-0.7) 10^3/uL 0.03 Absolute Basophils (0.0-0.2) 10^3/uL 0.03 PT (9.1-11.1) sec 11.6 H INR (0.9-1.1) 1.2 H APTT (20.6-30.2) sec 25.7 VBG Lactate (<or=2.0) mmol/L 0.9 Sodium (136-145) mmol/L 140 Potassium (3.5-5.1) mmol/L 4.1 Chloride (98-107) mmol/L 103 Carbon Dioxide (21.0-32.0) mmol/L 27.8 Anion Gap (3-11) mmol/L 9.2 BUN (7-18) mg/dL 13 Creatinine (0.70-1.30) mg/dL 1.0 Est GFR (CKD-EPI 2020) (mL/min/1.73m2) 101.28 Glucose (74-106) mg/dL 96 Calcium (8.5-10.1) mg/dL 8.9 Magnesium (1.8-2.4) mg/dL 1.8 Total Bilirubin (0.2-1.0) mg/dL 0.4 AST (15-37) U/L 19 ALT (16-63) U/L 36 Alkaline Phosphatase (46-116) U/L 88 Troponin I (<or=76) ng/L < 4 Total Protein (6.4-8.2) g/dL 8.4 H Albumin (3.4-5.0) g/dL 3.7 Lipase (<78) U/L 27 ABO/Rh A Positive Antibody Screen NEGATIVE PFSH All Active Problems (Updated 06/02/24 @ 17:46 by GISEL Phan) Gastritis (Acute) Chondromalacia of patella, left (Acute) No-show for appointment (Acute) Acute medial meniscus tear of left knee (Acute ~11/2023) s/p Left knee arthroscopy with partial medial meniscectomy, patellar chondroplasty, and synovectomy 06/02/24 Medical History (Updated 06/28/25 @ 20:25 by GISEL Dang) No significant past medical history Surgical History (Updated 06/02/24 @ 17:46 by GISEL Phan) No significant past surgical history Social History Smoking/Tobacco Use Status: Current every day Tobacco Type: e-cigarettes Smoking risk assessment performed?: Yes Alcohol Intake: former Drug use: Daily Substance use type: marijuana Details: mostly at night to go to sleep with. will smoke in the morning if he has nausea on his days off 06/28/25 Housing: apartment Do you feel safe at home: Yes Do you feel safe in your relationship?: Yes Additional Social history: [employer]
--- NOTE | 2025-06-28 19:00 | RT.EKG_ITS ---
APPROVED REPORT Exam: Resting ECG Reason for Exam: baseline/screening Patient Location: E HR:94 bpm ECG Measurements Heart Rate 94 AXIS VA 151 P 45 QRSd 98 QRS 66 QT 352 T 30 QTc 440 Conclusion Sinus rhythm, rate 94 No interval abnormalities No STEMI No priors available for comparsion
[2025-06-28 19:32] LABS: Abs Immature Grans 0.04 10^3/uL (0.0-0.06); HCT 42.8 % (40.0-50.0); HGB 14.3 g/dL (13.5-17.5); Immature Grans % 0.3 %; MCH 27.9 pg (27.0-33.0); MCHC 33.4 % (32.0-36.0); MCV 83 fL (80-95); MPV 9.5 fL (8.0-11.0); Platelet Count 263 10^3/uL (130-400); RBC 5.13 10^6/uL (4.36-5.78); RDW 13.2 % (11.8-14.1); RDW-SD 40.1 fL; WBC 13.16 10^3/uL (4.4-10.8)
[2025-06-28] MEDS: Normal Saline 500 ML IV (19:34)
[2025-06-28] MEDS: Pantoprazole 40 MG VIAL IVP (19:34)
[2025-06-28 19:47] LABS: INR 1.2 (0.9-1.1); PTT Activated 25.7 sec (20.6-30.2); Prothrombin Time 11.6 sec (9.1-11.1)
[2025-06-28 19:50] LABS: ALT 36 U/L (16-63); AST 19 U/L (15-37); Albumin 3.7 g/dL (3.4-5.0); Alkaline Phosphatase 88 U/L (46-116); Anion Gap 9.2 mmol/L (3-11); BUN 13 mg/dL (7-18); Bilirubin, Total 0.4 mg/dL (0.2-1.0); CO2 27.8 mmol/L (21.0-32.0); Calcium 8.9 mg/dL (8.5-10.1); Chloride 103 mmol/L (98-107); Estimated GFR 101.28 (mL/min/1.73m2); Glucose 96 mg/dL (74-106); Potassium 4.1 mmol/L (3.5-5.1); Sodium 140 mmol/L (136-145); Total Protein 8.4 g/dL (6.4-8.2)
[2025-06-28 19:55] LABS: Lipase 27 U/L (<78); Magnesium 1.8 mg/dL (1.8-2.4); Troponin I < 4 ng/L (<or=76)
[2025-06-28] MEDS: Ondansetron O.D.T. 4 MG TABEF, 3 TABS/BTL PO (20:32)
== END 2025-06-28 20:46 | disposition home or self-care (01) ==
PROVIDERS: Emergency Provider Physician Assistant
DX: K29.60 Other gastritis without bleeding (principal); F17.290 Nicotine dependence, other tobacco product, uncomplicated; F12.90 Cannabis use, unspecified, uncomplicated
CPT/HCPCS: 36415; 80053; 83690; 86850; 86900; 86901; 93005; 96374; 99283; 83605; 83735; 84484; 85025; 85610; 85730; 93010; J2470

== ENCOUNTER 2025-08-03 10:12 | Emergency (ER) | payer MEDICAID, SELFPAY ==
[2025-08-03 10:15] VITALS: BP 147/84; PULSE 79; RESP 18; O2SAT 97
[2025-08-03 10:19] VITALS: BP 147/84; PULSE 79; RESP 18; O2SAT 97
--- NOTE | 2025-08-03 10:28 | W.ED.GENAD ---
Discharge Plan Disposition Patient Disposition: Home Condition: Stable Discharge Details Clinical Impression: Dental infection Primary Care Provider: Unknown,Unknown ED Provider: Fiorella Grace Home Meds and New Rx's Prescriptions: New clindamycin HCl 150 mg capsule 450 mg PO TID 7 Days Qty: 63 0RF Rx Instructions: Take 3 capsules by mouth 3 times daily for the next 7 days Discharge Instructions Instructions: Dental Pain ED Additional Instructions: Please apply the HurriCaine gel up to 3 times daily as needed for pain. You can put the it on a Q-tip and just hold it to the area. Please take the antibiotics 3 capsules 3 times daily with yogurt or a probiotic as directed for the next 7 days. Please take Tylenol or Ibuprofen with food every 4-6 hours as needed for pain and swelling. Please take the tramadol as needed for moderate to severe pain not relieved by Tylenol or ibuprofen this may make you sleepy do not operate heavy machinery while on this medication. You do still need to see a dentist. Follow up with primary care provider in 3-5 days. Return to ED sooner if any worsening or concerns. Thank you for allowing us to care for you today. Happy Thanksgiving. Stand Alone Forms: Portal Information Referrals: Primary Care Provider [Outside] Referral Note: ER follow up call for an appointment Discharge Data Discharge Date/Time-TO BE ENTERED AT DEPARTURE: 08/03/25 11:04 HPI General Mode of arrival: ambulatory. Date/Time Provider Initiated Documentation: 08/03/25 10:21. Limitations to Documentation: no limitations. Information obtained by: patient, RN notes reviewed and old records reviewed. HPI Narrative: 35 year old male presents to the ER with a cc of left lower tooth pain and left lower jaw swelling which he woke up with this am. Patient has a noted broken molar # 18. No surrounding fluctuance or drainable abscess. Posterior oropharynx slightly erythemic but no exudate. He reports no sore throat. He states he has been seen at the dentist for this in the past but they did not pull it. Denies any other symptoms no fever or chills did not take any Tylenol or ibuprofen prior to arrival. He is speaking in full sentences. No trismus. Related Data Home Medications ?Medication ?Instructions ?Recorded ?Confirmed clindamycin HCl 150 mg capsule 450 mg (3 x 150 mg) PO TID Dental 08/03/25 infection 7 days #63 caps Previous Rx's ?Medication ?Instructions ?Recorded clindamycin HCl 150 mg capsule 450 mg (3 x 150 mg) PO TID Dental 08/03/25 infection 7 days #63 caps Allergies Allergy/AdvReac Type Severity Reaction Status Date / Time No Known Allergies Allergy Verified 08/03/25 10:19 General Stated Complaint: DentalOral RONALD: 4 Review of Systems ENT Ears, Nose, Mouth, and Throat: Reports as per HPI and Reports dental pain Exam [facility] Face images:  1. Area of swelling with palpation Mouth: oral mucosae normal, lip normal, tongue normal, no trismus and No restricted motion Teeth and gingiva: abnormal tooth or associated gingiva lower left second molar tender and dentin fractured and fair dentition Teeth image:  1. Broken molars, the anterior portion of the molar is broken. Course Vital Signs Vital signs: Vital Signs Pulse 79 08/03/25 10:15 Respiratory Rate 18 08/03/25 10:15 Blood Pressure 147/84 H 08/03/25 10:15 Pulse Oximetry 97 08/03/25 10:15 Pulse 79 08/03/25 10:19 Respiratory Rate 18 08/03/25 10:19 Blood Pressure 147/84 H 08/03/25 10:19 Pulse Oximetry 97 08/03/25 10:19 Oxygen Delivery Method Room Air 08/03/25 10:19 Oxygen Flow Rate 0 08/03/25 10:15 Pain Level 8 08/03/25 10:19 Medical Decision Making 35 year old male presents to the ER with a cc of left lower tooth pain and left lower jaw swelling which he woke up with this am. Patient has a noted broken molar # 18. No surrounding fluctuance or drainable abscess. Posterior oropharynx slightly erythemic but no exudate. He reports no sore throat. He states he has been seen at the dentist for this in the past but they did not pull it. Denies any other symptoms no fever or chills did not take any Tylenol or ibuprofen prior to arrival. He is speaking in full sentences. No trismus. Will give clindamycin, 100 mg ibuprofen topical HurriCaine benzocaine gel to apply 3 times daily. And 50 mg of tramadol with 2 tablets to go home with. This text was generated using Ivisysation system, please disregard any oddities of phrase or misspellings. PFSH All Active Problems Dental infection (Acute) Chondromalacia of patella, left (Acute) No-show for appointment (Acute) Acute medial meniscus tear of left knee (Acute ~11/2023) s/p Left knee arthroscopy with partial medial meniscectomy, patellar chondroplasty, and synovectomy 06/02/24 Medical History (Updated 08/03/25 @ 10:32 by Fiorella Grace NP) No significant past medical history Surgical History No significant past surgical history Social History Smoking/Tobacco Use Status: Current every day Tobacco Type: e-cigarettes Smoking risk assessment performed?: Yes Alcohol Intake: former Drug use: Daily Substance use type: marijuana Details: mostly at night to go to sleep with. will smoke in the morning if he has nausea on his days off 06/28/25 Housing: apartment Do you feel safe at home: Yes Do you feel safe in your relationship?: Yes Additional Social history: [employer]
[2025-08-03] MEDS: Benzocaine 20% Gel 30 GM JAR MM (10:51)
[2025-08-03] MEDS: Clindamycin 150 MG CAP 450 MG PO (10:53)
[2025-08-03] MEDS: Ibuprofen 800 MG TAB PO (10:54)
[2025-08-03] MEDS: traMADol 50 MG TAB PO (10:54)
[2025-08-03] MEDS: traMADol 50 MG TAB 100 MG PO (10:55)
[2025-08-03] MEDS: Clindamycin 150 MG CAP, 12 CAPS/BTL 450 MG PO (10:56)
== END 2025-08-03 11:04 | disposition home or self-care (01) ==
PROVIDERS: Emergency Provider Registered Nurse Emergency
DX: R68.84 Jaw pain (principal); K04.7 Periapical abscess without sinus
CPT/HCPCS: 99283